=== PATIENT | male | born 1955 | race Caucasian/White ===

== ENCOUNTER 2019-08-19 17:38 | Emergency (ER) | payer OTHER ==
[~2019-08-19] VITALS: Ht 175.3 cm; Wt 72.6 kg
--- NOTE | 2019-08-19 17:43 | NUR ---
ED Nurse Note: Pt arrived with [facility] from [facility] due to right foot pain x 1 day. redness noted. pain 01/20 Addendum: 08/19/19 at 1744 by PDELEON ED Nurse Note: *0 pain
[2019-08-19] MEDS ORDERED: LISINOPRIL20 MG ORAL (17:51)
[2019-08-19] MEDS ORDERED: FERROUS SULFAT325 MG ORAL (17:51)
[2019-08-19] MEDS ORDERED: MELATONIN3 M1 ORAL (17:51)
[2019-08-19] MEDS ORDERED: NEURONTIN600 MG ORAL (17:51)
[2019-08-19] MEDS ORDERED: BISOPROLOL FUMAR5 MG PO (17:51)
[2019-08-19] MEDS ORDERED: ASPIRIN81 MG ORAL (17:51)
[2019-08-19] MEDS ORDERED: IBUPROFEN800 MG ORAL (17:51)
[2019-08-19] MEDS ORDERED: NORCO 10-325 T1 EACH ORAL (17:51)
[2019-08-19] MEDS ORDERED: ACETAMINOPHEN325 M1 ORAL (17:51)
[2019-08-19] MEDS ORDERED: ATORVASTATIN CA40 MG ORAL (17:51)
--- NOTE | 2019-08-19 17:58 | Emergency Room Report ---
History of Present Illness General Chief Complaint: Lower Extremity Injury Source: Patient, EMS Present Illness HPI Disclaimer: Please note that this report is being documented using [employer] technology. This can lead to erroneous entry secondary to incorrect interpretation by the dictating instrument. HPI: 64-year-old male history of hyperlipidemia, hypertension, peripheral vascular disease, left lower extremity [id number] amputation presented for right lower extremity pain and swelling. Pain and swelling present for approximately 1 week. Patient denies any fevers cough nausea or vomiting. Patient is nonambulatory and uses a wheelchair. Pain currently 8 out of 10 worse with movement and palpation. PMH: As above PSH: Reviewed Social Hx: Patient is an active smoker currently lives in a [facility] facility denied illicit drug use Allergies: Uncoded Allergies: PENICILLIN (Allergy, Unknown, 08/19/19) COVID-19 Screening Contact w/high risk pt: No Recent Travel to affected area: No Experienced COVID-19 symptoms?: No Nursing Documentation-PMH Hx Hypertension: Yes Review of Systems All Other Systems: negative except mentioned in HPI Physical Exam Vital Signs Date Time Temp Pulse Resp B/P (MAP) Pulse Ox O2 Delivery O2 Flow Rate FiO2 08/19/19 17:40 98.4 78 19 133/77 (95) 96 Room Air Sp02 EP Interpretation: reviewed, normal General Appearance: well appearing, no apparent distress Head: normocephalic, atraumatic Eyes: bilateral eye PERRL, bilateral eye EOMI ENT: hearing grossly normal, moist mucus membranes Neck: full range of motion, supple Respiratory: lungs clear, normal breath sounds, no rhonchi, no respiratory distress, no retraction, no wheezing Cardiovascular #1: normal peripheral pulses, regular rate, rhythm, no murmur Cardiovascular #2: 0 femoral (R), 0 dorsalis pedis (R) Gastrointestinal: non tender, soft, non-distended, no guarding Musculoskeletal: other - Left lower extremity ryaji-fqf-tsvo amputation. Right lower extremity with swelling and mild erythema of the foot without palpable pulses, sensation intact motor intact, capillary refill intact Neurologic: alert, oriented x3, no focal defects Skin: normal color, warm/dry Procedures Critical Care Time Critical Care Time Critical care time is managing the patient due to presentation with acute ischemic limb requiring my acute intervention to prevent further deterioration. Critical care time is 40 minutes and excludes procedures Medical Decision Making Diagnostic Impression: Primary Impression: Ischemia of right lower extremity ER Course MDM: Patient presented for right lower extremity pain. Patient states pain is been present for about 1 week. My differential included but not limited to dependent edema, DVT, cellulitis, peripheral vascular disease to name a few. Clinical course-IV cardiac monitoring pulse oximetry, venous and arterial ultrasounds ordered. Laboratory studies were sent. Arterial ultrasound showed occlusion of the superficial femoral popliteal and dorsalis pedis arteries. Patient did not have a pulse that was palpable or auscultated with Doppler. Due to the concern for limb ischemia patient started on heparin drip. We do not have vascular surgery director aeronautics commission here at [facility] and patient's insurance was contacted at another facility so patient was transferred side facility for vascular surgery consultation and admission. Patient accepted by Dr. Mariscal Labs - Laboratory Tests Test 08/19/19 17:56 White Blood Count 6.3 K/UL (4.8-10.8) Red Blood Count 3.82 M/UL (4.70-6.10) L Hemoglobin 11.5 G/DL (14.2-18.0) L Hematocrit 34.5 % (42.0-52.0) L Mean Corpuscular Volume 90 FL (80-99) Mean Corpuscular Hemoglobin 30.1 PG (27.0-31.0) Mean Corpuscular Hemoglobin Concent 33.3 G/DL (32.0-36.0) Red Cell Distribution Width 13.3 % (11.6-14.8) Platelet Count 108 K/UL (150-450) L Mean Platelet Volume 7.1 FL (6.5-10.1) Neutrophils (%) (Auto) 65.0 % (45.0-75.0) Lymphocytes (%) (Auto) 22.4 % (20.0-45.0) Monocytes (%) (Auto) 11.7 % (1.0-10.0) H Eosinophils (%) (Auto) 0.2 % (0.0-3.0) Basophils (%) (Auto) 0.7 % (0.0-2.0) Prothrombin Time 10.5 SEC (9.30-11.50) Prothrombin Time INR 1.0 (0.9-1.1) Activated Partial Thromboplast Time 29 SEC (23-33) Sodium Level 140 MMOL/L (136-145) Potassium Level 4.5 MMOL/L (3.5-5.1) Chloride Level 103 MMOL/L (98-107) Carbon Dioxide Level 27 MMOL/L (21-32) Anion Gap 10 mmol/L (5-15) Blood Urea Nitrogen 39 mg/dL (7-18) H Creatinine 1.2 MG/DL (0.55-1.30) Estimated Glomerular Filtration Rate > 60 mL/min (>60) Glucose Level 113 MG/DL (74-106) H Calcium Level 9.1 MG/DL (8.5-10.1) Total Bilirubin 0.4 MG/DL (0.2-1.0) Aspartate Amino Transferase (AST) 29 U/L (15-37) Alanine Aminotransferase (ALT) 36 U/L (12-78) Alkaline Phosphatase 75 U/L (46-116) Total Creatine Kinase 61 U/L (26-308) Troponin I 0.000 ng/mL (0.000-0.056) Total Protein 7.5 G/DL (6.4-8.2) Albumin 3.9 G/DL (3.4-5.0) Globulin 3.6 g/dL Albumin/Globulin Ratio 1.1 (1.0-2.7) Plan-patient will be transferred to contracted hospital, [facility]. I spoke with Dr. Mariscal who agreed to accept patient and will consult vascular surgery. Last Vital Signs Date Time Temp Pulse Resp B/P (MAP) Pulse Ox O2 Delivery O2 Flow Rate FiO2 08/19/19 17:40 98.4 78 19 133/77 (95) 96 Room Air Disposition: ADMITTED INPATIENT - Patient plan to be admitted to [facility] Condition: Serious - Patient was stable for transfer Alvaro Ramos M.D. August 19, 2019 17:58
--- NOTE | 2019-08-19 18:00 | NUR ---
ED Nurse Note: IV site patent and intact, pt blood specimen colleted; sent to lab
--- NOTE | 2019-08-19 18:00 | NUR ---
ED Nurse Note: please inform dr. queen before discharging patient.
--- NOTE | 2019-08-19 18:04 | NUR ---
ED Nurse Note: US at bedside
--- NOTE | 2019-08-19 18:09 | NUR ---
ED Nurse Note: xray at bedside
[2019-08-19 18:20] LABS: BASOPHILS % (AUTO) 0.7 % (0.0-2.0); EOSINOPHILS % (AUTO) 0.2 % (0.0-3.0); HEMATOCRIT 34.5 % (42.0-52.0); HEMOGLOBIN 11.5 G/DL (14.2-18.0); LYMPHOCYTES % (AUTO) 22.4 % (20.0-45.0); MEAN CORPUSCULAR VOLUME 90 FL (80-99); MONOCYTES % (AUTO) 11.7 % (1.0-10.0); PLATELET COUNT 108 K/UL (150-450); RED BLOOD COUNT 3.82 M/UL (4.70-6.10); RED CELL DISTRIBUTION WIDTH 13.3 % (11.6-14.8); WHITE BLOOD COUNT 6.3 K/UL (4.8-10.8)
[2019-08-19 18:22] LABS: ANION GAP 10 mmol/L (5-15); BLOOD UREA NITROGEN 39 mg/dL (7-18); CALCIUM 9.1 MG/DL (8.5-10.1); CARBON DIOXIDE 27 MMOL/L (21-32); CHLORIDE 103 MMOL/L (98-107); CREATININE 1.2 MG/DL (0.55-1.30); POTASSIUM 4.5 MMOL/L (3.5-5.1); SODIUM 140 MMOL/L (136-145)
[2019-08-19 18:25] LABS: ALANINE AMINOTRANSFERASE 36 U/L (12-78); ALBUMIN 3.9 G/DL (3.4-5.0); ALBUMIN/GLOBULIN RATIO 1.1 (1.0-2.7); ALKALINE PHOSPHATASE 75 U/L (46-116); ASPARTATE AMINO TRANSFERASE 29 U/L (15-37); BILIRUBIN,TOTAL 0.4 MG/DL (0.2-1.0); CREATINE KINASE 61 U/L (26-308)
--- NOTE | 2019-08-19 18:45 | Diagnostic Imaging Report ---
EXAM: XR Chest, 1 View CLINICAL HISTORY: SOB TECHNIQUE: Frontal view of the chest. COMPARISON: No relevant prior studies available. FINDINGS: Lungs: No significant abnormality. No consolidation. Pleural space: No significant abnormality. No pneumothorax. Heart: No significant abnormality. No cardiomegaly. Mediastinum: No significant abnormality. Bones/joints: No acute osseous abnormality. IMPRESSION: No acute cardiopulmonary process.
[2019-08-19] MEDS ORDERED: Heparin 25,000u/D5W 500ml 500 ML IV SCH (19:15)
[2019-08-19] MEDS ORDERED: Heparin 5000 units/ml inj IV ONE (19:15)
--- NOTE | 2019-08-19 19:22 | NUR ---
ED Nurse Note: ENDORSEMENT GIVEN TO MARISSA CRUM. HEPARIN ORDER STILL STANDING.
[2019-08-19 19:35] VITALS: BP 124/55
--- NOTE | 2019-08-19 19:36 | NUR ---
ED Nurse Note: Patient is resting comfortably with no s/s of acute distress. Patient tolerated IV heparin push well. Pharmacy contacted for lable for heparin drip. Will continue to monitor.
--- NOTE | 2019-08-19 19:42 | Diagnostic Imaging Report ---
EXAM: US Duplex Right Lower Extremity Arteries CLINICAL HISTORY: PAIN TECHNIQUE: Real-time duplex ultrasound scan of the right lower extremity arteries integrating B-mode two-dimensional vascular structure, Doppler spectral analysis and color flow Doppler imaging. COMPARISON: No relevant prior studies available. FINDINGS: Right common femoral artery: Monophasic waveform in the right common femoral artery. Right superficial femoral artery: No detectable flow. Right popliteal artery: No detectable flow. Right calf/foot arteries: No detectable flow in the posterior tibial, anterior tibial, or dorsalis pedis artery. Soft tissues: No significant abnormality. IMPRESSION: No detectable flow in the right femoral, popliteal, posterior tibial, anterior tibial, and dorsalis pedis arteries.
--- NOTE | 2019-08-19 19:54 | NUR ---
Spoke with Sumaya-case coordinator-updated information given-will work on transfering patient.
--- NOTE | 2019-08-19 20:00 | NUR ---
ED Nurse Note: Unable to locate dorsal pedis pulse with doppler, ERMD to be informed.
--- NOTE | 2019-08-19 20:25 | Diagnostic Imaging Report ---
EXAM: US Duplex Right Lower Extremity Veins CLINICAL HISTORY: PAIN TECHNIQUE: Real-time duplex ultrasound scan of the right lower extremity veins integrating B-mode two-dimensional vascular structure, Doppler spectral analysis, color flow Doppler imaging and compression. COMPARISON: No relevant prior studies available. FINDINGS: Deep veins: Unremarkable as visualized. Normal compression and normal response to augmentation. Superficial veins: Unremarkable as visualized. Soft tissues: No acute findings. IMPRESSION: No right lower extremity DVT.
--- NOTE | 2019-08-19 21:22 | NUR ---
ED Nurse Note: Called to render report to nursing maintenance supervisor at [facility]. Spoke with katya rodriguez Recruitment Advertising Manager, who change room from 202B to 207B and report was called in to Kelsey. ACLS is currently here for pickup, listening in on report. heparin DC'd as accompanying nurse stipulated that they cannot transport with heparin. Patient is in stable condition for transfer, vital signs are documented. Patient has no complaints upon departure for transfer.
[2019-08-19 21:30] VITALS: BP 124/55
--- NOTE | 2019-08-19 21:30 | NUR ---
ED Nurse Note: Patient departed with ACLS.
== END 2019-08-19 21:30 | disposition short-term general hospital (02) ==
LOC: EDBD 17:38 → EMR 18:06
DX: I99.8 Other disorder of circulatory system (principal); Z88.0 Allergy status to penicillin; I10 Essential (primary) hypertension; F17.200 Nicotine dependence, unspecified, uncomplicated; E78.5 Hyperlipidemia, unspecified; Z89.612 Acquired absence of left leg above knee
CPT/HCPCS: 36415; 71045; 80053; 82550; 84484; 85025; 85610; 85730; 87040; 93005; 93926; 93971; 96365; 96375; J1644; Z7502; 99291

== ENCOUNTER 2020-03-04 19:34 | Inpatient (IN) | payer OTHER ==
[~2020-03-04] VITALS: Ht 167.6 cm; Wt 77.1 kg
[~2020-03-04 19:34] MED LIST: ACETAMINOPHEN325 M1 ORAL; ASPIRIN81 MG ORAL; ATORVASTATIN CA40 MG ORAL; BISOPROLOL FUMAR5 MG PO; FERROUS SULFAT325 MG ORAL; IBUPROFEN800 MG ORAL; LISINOPRIL20 MG ORAL; MELATONIN3 M1 ORAL; NEURONTIN600 MG ORAL; NORCO 10-325 T1 EACH ORAL
[2020-03-04 19:55] VITALS: BP 94/48
[2020-03-04] MEDS ORDERED: Vancomycin 1.5gm/300ml Premix 300 ML IVPB ONE (20:00)
[2020-03-04 20:08] LABS: HEMATOCRIT 23.4 % (42.0-52.0); HEMOGLOBIN 7.9 G/DL (14.2-18.0); MEAN CORPUSCULAR VOLUME 85 FL (80-99); PLATELET COUNT 210 K/UL (150-450); RED BLOOD COUNT 2.77 M/UL (4.70-6.10); RED CELL DISTRIBUTION WIDTH 13.9 % (11.6-14.8)
[2020-03-04] MEDS ORDERED: Morphine Sulfate 4mg/ml Inj (IV USE ONLY) ONE (20:16)
[2020-03-04] MEDS ORDERED: BISACODYL5 MG ORAL (20:22)
[2020-03-04] MEDS ORDERED: MULTI-BETIC TA1 EAC1 ORAL (20:22)
[2020-03-04] MEDS ORDERED: ASCORBIC ACID500 MG ORAL (20:22)
[2020-03-04] MEDS ORDERED: COLACE100 MG ORAL (20:22)
[2020-03-04 20:24] LABS: ANION GAP 10 mmol/L (5-15); BLOOD UREA NITROGEN 58 mg/dL (7-18); CALCIUM 8.4 MG/DL (8.5-10.1); CARBON DIOXIDE 23 MMOL/L (21-32); CHLORIDE 99 MMOL/L (98-107); CREATININE 1.4 MG/DL (0.55-1.30); POTASSIUM 4.3 MMOL/L (3.5-5.1); SODIUM 132 MMOL/L (136-145)
[2020-03-04] MEDS ORDERED: Morphine Sulfate 4mg/ml Inj (IV USE ONLY) IVP ONE (20:30)
[2020-03-04 20:41] LABS: ALANINE AMINOTRANSFERASE 85 U/L (12-78); ALBUMIN/GLOBULIN RATIO 0.4 (1.0-2.7); ALKALINE PHOSPHATASE 116 U/L (46-116); ASPARTATE AMINO TRANSFERASE 119 U/L (15-37); BILIRUBIN,TOTAL 0.3 MG/DL (0.2-1.0); FERRITIN > 2000 NG/ML (8-388); LACTATE DEHYDROGENASE 268 U/L (81-234)
--- NOTE | 2020-03-04 20:45 | Emergency Room Report ---
History of Present Illness General Chief Complaint: Skin Rash/Abscess Source: Patient Present Illness HPI 64-year-old male presents for evaluation. [facility] Per nursing patient has a wound to his right foot. Patient states is been like this for some time now. Many months. Is not improving. Pain is throbbing, 10 out of 10, nonradiating. Denies fevers or chills. Patient recently tested positive for Covid. Denies cough chest pain shortness of breath. No other aggravating relieving factors. Denies any other associated symptoms Allergies: Uncoded Allergies: PENICILLIN (Allergy, Unknown, 08/19/19) COVID-19 Screening Contact w/high risk pt: Yes Recent Travel to affected area: No Experienced COVID-19 symptoms?: Yes COVID-19 Testing performed [employer]KER: Yes COVID-19 Screening: Positive COVID-19 COVID-19 Testing Source: [facility] Patient History Past Medical History: HTN Past Surgical History: none Pertinent Family History: none Social History: Denies: smoking, alcohol use, drug use Immunizations: UTD Reviewed Nursing Documentation: PMH: Agreed; PSxH: Agreed Nursing Documentation-PMH Hx Hypertension: Yes Review of Systems All Other Systems: negative except mentioned in HPI Physical Exam Vital Signs Date Time Temp Pulse Resp B/P (MAP) Pulse Ox O2 Delivery O2 Flow Rate FiO2 03/04/20 19:38 97.9 84 16 94/48 (63) 96 Room Air Sp02 EP Interpretation: reviewed, normal General Appearance: no apparent distress, alert, GCS 15, non-toxic Head: normocephalic, atraumatic Eyes: bilateral eye normal inspection, bilateral eye PERRL ENT: hearing grossly normal, normal pharynx, no angioedema, normal voice Neck: full range of motion, supple/symm/no masses Respiratory: chest non-tender, lungs clear, normal breath sounds, speaking full sentences Cardiovascular #1: regular rate, rhythm, no edema Cardiovascular #2: 2+ carotid (R), 2+ carotid (L), 2+ radial (R), 2+ radial (L), 2+ dorsalis pedis (R), 2+ dorsalis pedis (L) Gastrointestinal: normal bowel sounds, non tender, soft, non-distended, no guarding, no rebound Rectal: deferred Genitourinary: normal inspection, no CVA tenderness Musculoskeletal: back normal, normal range of motion, gait/station normal, non- tender Neurologic: alert, motor strength/tone normal, oriented x3, sensory intact, responsive, speech normal Psychiatric: judgement/insight normal, memory normal, mood/affect normal, no suicidal/homicidal ideation Reflexes: 3+ bicep (R), 3+ bicep (L), 3+ tricep (R), 3+ tricep (L), 3+ knee (R), 3+ knee (L) Skin: other - Gangrene of right foot and ankle Lymphatic: no adenopathy Procedures Critical Care Time Critical Care Time i. I feel this is a highly complex case requiring extensive working including EKG/Rhythm strip, Xray/CT/US, Blood/urine lab work, repeat exams while in ED, and administration of strong opiates/narcotics for pain control, admission to hospital or close patient follow up. Total time: 60 min bedside evaluation and treatment excludes procedures (EKG). Reason for critical care: gangrene R foot Possible complications: hypotension, hypertension, AR, shock, arrhythmias, metabolic acidosis, end organ damage, respiratory failure. Interventions: Labs, IV fluids, chest x-ray, Covid swab, broad-spectrum antibiotics, discussion with surgery Course: Patient presenting with wound to his right foot. Covid positive. No cough chest pain or shortness of breath. The foot and ankle appears gangrenous. Discussed with surgery who agrees. Patient will likely require operative intervention possible amputation. Broad-spectrum antibiotics given. Consultations: nursing staff, EMS, family Performed by: Dr Aranda Tolerated well condition = serious j. because of unstable vital signs this patient had a condition that could pote ntially threaten life or limb. I feel this is a critical patient who required my full attention while patient was considered critical. Total Critical Care Time excluding procedures was greater than 60 minutes Medical Decision Making Diagnostic Impression: Primary Impression: Gangrene of right foot Additional Impression: COVID-19 ER Course Hospital Course 64-year-old male presents with wounds to right foot Differential diagnoses include: Cellulitis, DVT, abscess, rash. Clinical course Patient placed on stretcher. in isolation. I wore full PPE. After initial history and physical I ordered labs, blood Cx, UA, IVFs, CXR, R foot xray Clinically the foot appears gangrenous labs reviewed - no leukocytosis, Hb/Hct 7.9/23.4, no electrolyte abnormalities. D-dimer 1.89, ferritin, LDH, CRP all elevated Covid positive Chest x-ray shows no focal consolidation Right foot x-ray shows some locules of air and some soft tissue swelling. No obvious evidence of osteomyelitis Broad-spectrum antibiotics given. Given dexamethasone and Lovenox for elevated inflammatory markers and elevated D-dimer. Discussed with surgery to evaluate the foot/ankle Case discussed with Dr Vickers and he agreed to accept the patient to his service for further care and support Diagnosis - gangrene of R foot, COVID 19 Patient admitted to floor in serious condition Laboratory Tests Test 03/04/20 19:46 White Blood Count 7.0 K/UL (4.8-10.8) Red Blood Count 2.77 M/UL (4.70-6.10) L Hemoglobin 7.9 G/DL (14.2-18.0) L Hematocrit 23.4 % (42.0-52.0) L Mean Corpuscular Volume 85 FL (80-99) Mean Corpuscular Hemoglobin 28.5 PG (27.0-31.0) Mean Corpuscular Hemoglobin Concent 33.6 G/DL (32.0-36.0) Red Cell Distribution Width 13.9 % (11.6-14.8) Platelet Count 210 K/UL (150-450) Mean Platelet Volume 5.5 FL (6.5-10.1) L Neutrophils (%) (Auto) % (45.0-75.0) Lymphocytes (%) (Auto) % (20.0-45.0) Monocytes (%) (Auto) % (1.0-10.0) Eosinophils (%) (Auto) % (0.0-3.0) Basophils (%) (Auto) % (0.0-2.0) Neutrophils % (Manual) Pending Lymphocytes % (Manual) Pending Platelet Estimate Pending Platelet Morphology Pending Prothrombin Time 10.9 SEC (9.30-11.50) Prothromb Time International Ratio 1.0 (0.9-1.1) Activated Partial Thromboplast Time 34 SEC (23-33) H D-Dimer 1.89 mg/L FEU (0.00-0.49) H Sodium Level 132 MMOL/L (136-145) L Potassium Level 4.3 MMOL/L (3.5-5.1) Chloride Level 99 MMOL/L (98-107) Carbon Dioxide Level 23 MMOL/L (21-32) Anion Gap 10 mmol/L (5-15) Blood Urea Nitrogen 58 mg/dL (7-18) H Creatinine 1.4 MG/DL (0.55-1.30) H Estimat Glomerular Filtration Rate 51.0 mL/min (>60) Glucose Level 112 MG/DL (74-106) H Lactic Acid Level 1.20 mmol/L (0.4-2.0) Calcium Level 8.4 MG/DL (8.5-10.1) L Ferritin > 2000 NG/ML (8-388) H Total Bilirubin 0.3 MG/DL (0.2-1.0) Aspartate Amino Transf (AST/SGOT) 119 U/L (15-37) H Alanine Aminotransferase (ALT/SGPT) 85 U/L (12-78) H Alkaline Phosphatase 116 U/L (46-116) Lactate Dehydrogenase 268 U/L (81-234) H C-Reactive Protein, Quantitative 39.8 mg/dL (0.00-0.90) H Pro-B-Type Natriuretic Peptide 1459 pg/mL (0-125) H Total Protein 7.1 G/DL (6.4-8.2) Albumin 2.0 G/DL (3.4-5.0) L Globulin 5.1 g/dL Albumin/Globulin Ratio 0.4 (1.0-2.7) L Chest X-Ray Diagnostic Results Chest X-Ray Diagnostic Results : Chest X-Ray Ordered: Yes # of Views/Limited/Complete: 1 View Indication: Other EP Interpretation: Yes Interpretation: no consolidation, no effusion, no pneumothorax, no acute cardiopulmonary disease Impression: No acute disease Electronically Signed by: Electronically signed by Jeremy Aranda MD Other X-Ray Diagnostic Results Other X-Ray Diagnostic Results : X-Ray ordered: R foot # of Views/Limited Vs Complete: 3 View Indication: Pain EP Interpretation: Yes Interpretation: no dislocation, no fractures, other - Soft tissue swelling locules of air. No evidence of osteomyelitis Impression: Other - Soft tissue swelling, locules of air Electronically Signed by: Electronically signed by Jeremy Aranda MD Last Vital Signs Date Time Temp Pulse Resp B/P (MAP) Pulse Ox O2 Delivery O2 Flow Rate FiO2 03/04/20 19:55 97.9 90 16 94/48 96 Room Air Status: improved Disposition: ADMITTED INPATIENT Condition: Serious Referrals: Matthew Vickers MD (PCP) Jeremy Aranda MD Mar 04, 2020 20:45
--- NOTE | 2020-03-04 20:59 | Diagnostic Imaging Report ---
EXAM: XR Right Foot Complete, 3 or More Views CLINICAL HISTORY: PREOP TECHNIQUE: Frontal, lateral and oblique views of the right foot. COMPARISON: No relevant prior studies available. FINDINGS: Bones/joints: There is generalized osteopenia. No focal cortical lucency to suggest acute osteomyelitis. There is a deformity of the fifth metatarsal head, likely the result of prior trauma. Additionally there is an overhanging osseous edge along the lateral margin of the distal fifth metatarsal which raises the possibility of a inflammatory arthropathy such as gout of the fifth metatarsophalangeal joint. No acute fracture is seen. No dislocation. Small retrocalcaneal enthesophyte. Soft tissues: There is diffuse soft tissue swelling and edema with locules of air, consistent with history of soft tissue wound. No radiopaque foreign body. IMPRESSION: Diffuse soft tissue swelling, edema with locules of air is compatible with history of soft tissue wound. No radiographic evidence of underlying osteomyelitis. An MRI is a more sensitive examination and can be performed to exclude osteomyelitis if clinically indicated.
--- NOTE | 2020-03-04 21:01 | Diagnostic Imaging Report ---
EXAM: XR Chest, 1 View CLINICAL HISTORY: PREOP TECHNIQUE: Frontal view of the chest. COMPARISON: No relevant prior studies available. FINDINGS: Lungs: Unremarkable. No consolidation. Pleural space: Unremarkable. No pneumothorax. Heart: Unremarkable. No cardiomegaly. Mediastinum: Unremarkable. Bones/joints: Old healed fracture of the right clavicle. IMPRESSION: No acute findings in the chest.
[2020-03-04] MEDS ORDERED: Enoxaparin 40mg Inj SUBQ ONE (21:15)
[2020-03-04] MEDS ORDERED: dexAMETHasone 10mg/ml Inj IV ONE (21:15)
[2020-03-04 22:07] VITALS: BP 105/54
[2020-03-05 04:00] VITALS: BP_SYST 130; BP_SYST 92; BP_DIAS 63; BP_DIAS 76
[2020-03-05] MEDS ORDERED: HYDROcodone/Acetamin 10/325 tab ORAL PRN ×2 (06:45→12:13)
[2020-03-05 08:00] VITALS: BP 98/60
[2020-03-05] MEDS ORDERED: Bisacodyl EC 5mg tab ORAL SCH (09:00)
[2020-03-05] MEDS ORDERED: Ascorbic Acid 500mg tab ORAL SCH ×2 (09:00→18:00)
[2020-03-05] MEDS ORDERED: Aspirin Baby 81mg ORAL SCH (09:00)
[2020-03-05] MEDS ORDERED: Lisinopril 20mg tab ORAL SCH (09:00)
[2020-03-05] MEDS ORDERED: Docusate 100mg cap ORAL SCH (09:00)
[2020-03-05] MEDS: Vancomycin 500mg/D5W 110ml IVPB SCH ×4 (09:04→20:33)
[2020-03-05 12:00] VITALS: BP 95/55
[2020-03-05] MEDS ORDERED: ACETAMINOPHEN325 M1 ORAL (12:01)
[2020-03-05] MEDS ORDERED: MILK OF MA400 MG/51 ORAL (12:01)
[2020-03-05] MEDS ORDERED: BISACODYL10 M1 RC (12:01)
[2020-03-05] MEDS ORDERED: Heparin 5000 units/ml inj SUBQ SCH ×2 (14:00)
[2020-03-05] MEDS ORDERED: Piperacillin/Tazobactam 3.375 GM in NS 110 ML IVPB SCH (14:00)
--- NOTE | 2020-03-05 14:09 | Consultation ---
History of Present Illness General Date patient seen: Mar 05, 2020 Reason for Hospitalization: Skin Rash/Abscess Present Illness HPI 64-year-old male with history of left AKA for ischemic gangrene infection presented to [facility] from care facility with right foot drainage ischemia open wound complaining of pain. Patient states he is not getting the pain medication he wants he wants his morphine pain is 10 out of 10. Given the extensive wound on his right lower extremity foot surgical devices with care. Patient seen, patient [place], chart reviewed. Patient currently Covid positive all precautions taken. Patient states he has had ongoing worsening ischemia and gangrene of his right lower extremity for some months now. He is considered an amputation in the past and is seemingly becoming more comfortable with the idea. States become more difficult to ambulate on his right leg and is fairly whee lchair-bound at this point. Tolerating diet labs okay no nausea vomiting fever chills Allergies: Uncoded Allergies: PENICILLIN (Allergy, Unknown, 08/19/19) COVID-19 Screening Contact w/high risk pt: Yes Recent Travel to affected area: No Experienced COVID-19 symptoms?: Yes Coronavirus symptoms experienc: Cough Medication History Scheduled Ascorbic Acid* (Ascorbic Acid*), 500 MG ORAL TWICE A DAY, (Reported) Aspirin* (Aspirin*), 81 MG ORAL DAILY, (Reported) Atorvastatin Calcium* (Atorvastatin Calcium*), 40 MG ORAL BEDTIME, (Reported) Docusate Sodium* (Colace*), 100 MG ORAL DAILY, (Reported) Gabapentin* (Neurontin*), 600 MG ORAL TWICE A DAY, (Reported) Lisinopril (Lisinopril*), 20 MG ORAL DAILY, (Reported) Magnesium Hydroxide* (Milk Of Magnesia*), 30 ML ORAL DAILY, (Reported) Multivit W-Mn/Fa/Lycop/Lut/Ala (Multi-Betic Tablet), 1 TAB ORAL DAILY, (Reported) Scheduled PRN Acetaminophen* (Acetaminophen 325MG Tablet*), 325 MG ORAL Q4H PRN for Mild Pain (Pain Scale 1-3), (Reported) Acetaminophen* (Acetaminophen 325MG Tablet*), 325 MG ORAL EVERY 8 HOURS PRN for Moderate Pain (Pain Scale 4-6), (Reported) Bisacodyl (Bisacodyl), 10 MG RC DAILY PRN for bowel management if MoM ineffe, (Reported) Hydrocodone Bit/Acetaminophen 10-325* ([place] 10-325*), 1 TAB ORAL Q4H PRN for Severe Pain (Pain Scale 7-10), (Reported) Melatonin (Melatonin), 3 MG ORAL BEDTIME PRN for Insomnia, (Reported) Miscellaneous Medications Bisoprolol Fumarate (Bisoprolol Fumarate), 5 MG PO, (Reported) Discontinued Medications Bisacodyl* (Dulcolax*), 10 MG ORAL DAILY, (Reported) Discontinued Reason: Prescription changed Ferrous Sulfate* (Ferrous Sulfate*), 325 MG ORAL DAILY, (Reported) Discontinued Reason: Pt stopped taking med Ibuprofen* (Motrin*), 800 MG ORAL Q6H, (Reported) Discontinued Reason: Pt stopped taking med Patient History History Provided By: Patient, Medical Record, PMD Healthcare decision maker Resuscitation status Advanced Directive on File Past Medical/Surgical History Past Medical/Surgical History: (1) Gangrene of right foot (2) COVID-19 Review of Systems Review of Symptoms General ROS: no weight loss or fever Psychological ROS: no depression or mood changes, no memory loss Ophthalmic ROS: no visual changes or eye irritation ENT ROS: no nasal congestion, hearing loss, dizziness Allergy and Immunology ROS: no allergic symptoms or urticaria Hematological and Lymphatic ROS: no swollen glands, unusual bleeding or bruising Endocrine ROS: no polyuria, polydipsia, weight changes, temperature intolerance Respiratory ROS: no cough, shortness of breath, or wheezing Cardiovascular ROS: no chest pain or dyspnea on exertion Gastrointestinal ROS: denies abdominal pain, bright red blood in stool. Musculoskeletal ROS: no myalgias or arthralgias Neurological ROS: no TIA or stroke symptoms Dermatological ROS: no new or changing skin lesions, rashes or pruritis Physical Exam Physical Exam General appearance: alert, cooperative, no distress, appears stated age Head: Normocephalic, without obvious abnormality, atraumatic Eyes: conjunctivae/corneas clear. PERRL, EOM's intact. Fundi benign Throat: Lips, mucosa, and tongue normal. Teeth and gums normal Neck: supple, symmetrical, trachea midline, no adenopathy, thyroid: not enlarged, symmetric, no tenderness/mass/nodules, no carotid bruit and no JVD Lungs: clear to auscultation bilaterally Heart: regular rate and rhythm, S1, S2 normal, no murmur, click, rub or gallop Abdomen: soft, non-tender. Bowel sounds normal. No masses, no organomegaly Extremities: extremities left aka stable. right extensive tissue loss dry gangrene with edema of right foot, ankle, distal leg. cellulitis. chronic Pulses: 2+ and symmetric Skin: Skin color, texture, turgor normal. No rashes or lesions Neurologic: Grossly normal Last 24 Hour Vital Signs Date Time Temp Pulse Resp B/P (MAP) Pulse Ox O2 Delivery O2 Flow Rate FiO2 03/05/20 12:00 96.8 70 16 95/55 (68) 97 03/05/20 09:00 Room Air 03/05/20 09:00 98/60 03/05/20 08:00 97.6 78 17 98/60 (73) 96 03/05/20 04:00 97.5 74 18 92/63 (73) 95 03/05/20 02:16 Room Air 03/04/20 22:07 97.9 85 16 105/54 99 Room Air 03/04/20 22:07 98.0 85 16 105/54 99 Room Air 03/04/20 21:47 97.9 03/04/20 19:55 97.9 90 16 94/48 96 Room Air 03/04/20 19:38 97.9 84 16 94/48 (63) 96 Room Air Laboratory Tests Test 03/04/20 19:46 White Blood Count 7.0 K/UL (4.8-10.8) Red Blood Count 2.77 M/UL (4.70-6.10) L Hemoglobin 7.9 G/DL (14.2-18.0) L Hematocrit 23.4 % (42.0-52.0) L Mean Corpuscular Volume 85 FL (80-99) Mean Corpuscular Hemoglobin 28.5 PG (27.0-31.0) Mean Corpuscular Hemoglobin Concent 33.6 G/DL (32.0-36.0) Red Cell Distribution Width 13.9 % (11.6-14.8) Platelet Count 210 K/UL (150-450) Mean Platelet Volume 5.5 FL (6.5-10.1) L Neutrophils (%) (Auto) % (45.0-75.0) Lymphocytes (%) (Auto) % (20.0-45.0) Monocytes (%) (Auto) % (1.0-10.0) Eosinophils (%) (Auto) % (0.0-3.0) Basophils (%) (Auto) % (0.0-2.0) Differential Total Cells Counted 100 Neutrophils % (Manual) 78 % (45-75) H Lymphocytes % (Manual) 13 % (20-45) L Monocytes % (Manual) 7 % (1-10) Eosinophils % (Manual) 0 % (0-3) Basophils % (Manual) 0 % (0-2) Band Neutrophils 2 % (0-8) Platelet Estimate Adequate Platelet Morphology Normal Hypochromasia 2+ Anisocytosis 1+ Prothrombin Time 10.9 SEC (9.30-11.50) Prothromb Time International Ratio 1.0 (0.9-1.1) Activated Partial Thromboplast Time 34 SEC (23-33) H D-Dimer 1.89 mg/L FEU (0.00-0.49) H Sodium Level 132 MMOL/L (136-145) L Potassium Level 4.3 MMOL/L (3.5-5.1) Chloride Level 99 MMOL/L (98-107) Carbon Dioxide Level 23 MMOL/L (21-32) Anion Gap 10 mmol/L (5-15) Blood Urea Nitrogen 58 mg/dL (7-18) H Creatinine 1.4 MG/DL (0.55-1.30) H Estimat Glomerular Filtration Rate 51.0 mL/min (>60) Glucose Level 112 MG/DL (74-106) H Lactic Acid Level 1.20 mmol/L (0.4-2.0) Calcium Level 8.4 MG/DL (8.5-10.1) L Ferritin > 2000 NG/ML (8-388) H Total Bilirubin 0.3 MG/DL (0.2-1.0) Aspartate Amino Transf (AST/SGOT) 119 U/L (15-37) H Alanine Aminotransferase (ALT/SGPT) 85 U/L (12-78) H Alkaline Phosphatase 116 U/L (46-116) Lactate Dehydrogenase 268 U/L (81-234) H C-Reactive Protein, Quantitative 39.8 mg/dL (0.00-0.90) H Pro-B-Type Natriuretic Peptide 1459 pg/mL (0-125) H Total Protein 7.1 G/DL (6.4-8.2) Albumin 2.0 G/DL (3.4-5.0) L Globulin 5.1 g/dL Albumin/Globulin Ratio 0.4 (1.0-2.7) L Microbiology Date/Time Source Procedure Growth Status 03/04/20 19:46 Nasopharynx SARS-CoV-2 RdRp Gene Assay - Final Complete Height (Feet): 5 Height (Inches): 6.00 Weight (Pounds): 170 Medications Current Medications Medications (Trade) Dose Ordered Sig/[place] Route PRN Reason Start Time Stop Time Status Last Admin Dose Admin Acetaminophen (Tylenol) 325 mg Q4H PRN ORAL pain 1-3 03/05/20 12:12 04/04/20 12:11 Acetaminophen/ Hydrocodone Bitart ([place] 10/325) 1 tab Q4H PRN ORAL PAIN 7-10 03/05/20 12:13 03/12/20 12:12 Ascorbic Acid (Vitamin C) 500 mg TWICE A DAY ORAL 03/05/20 18:00 04/04/20 17:59 Aspirin (ASA) 81 mg DAILY ORAL 03/06/20 09:00 04/20/20 08:59 Atorvastatin Calcium (Lipitor) 40 mg BEDTIME ORAL 03/05/20 21:00 06/03/20 20:59 Bisacodyl (Dulcolax) 10 mg DAILY ORAL 03/06/20 09:00 06/04/20 08:59 Bisoprolol Fumarate (Zebeta) 5 mg DAILY ORAL 03/06/20 09:00 04/05/20 08:59 Docusate Sodium (Colace) 100 mg DAILY ORAL 03/06/20 09:00 04/05/20 08:59 Ferrous Sulfate (Feosol) 325 mg DAILY ORAL 03/06/20 09:00 06/04/20 08:59 Heparin Sodium (Porcine) (Heparin 5000 units/ml) 5,000 units EVERY 8 HOURS SUBQ 03/05/20 14:00 04/19/20 13:59 Ibuprofen (Motrin) 800 mg Q6H PRN ORAL PAIN 4-7 03/05/20 12:13 04/04/20 12:12 Levofloxacin 100 ml @ 100 mls/hr Q24H IVPB 03/05/20 10:00 03/12/20 09:59 03/05/20 10:12 Lisinopril (PriniviL) 20 mg DAILY ORAL 03/06/20 09:00 04/05/20 08:59 Vancomycin HCl (Vanco pharmacy to dose) 1 ea DAILY PRN MISC Per rx protocol 03/05/20 06:45 04/04/20 06:44 Vancomycin HCl 500 mg/Dextrose 110 ml @ 110 mls/hr Q12HR@0900,2100 IVPB 03/05/20 09:00 03/10/20 08:59 03/05/20 09:04 Assessment/Plan Problem List: (1) Gangrene of right foot Assessment & Plan: 64-year-old male with history of left aka which is currently stable stable. On right lower extremity he has extensive tissue loss dry gangrene with edema of right foot, ankle, distal leg. cellulitis. chronic. Afebrile hemodynamic stable labs okay. Patient mainly complaining of pain and wants more pain medication. Unsure if directly related to the extremity or potential history of dependency. The extent of the leg tissue loss is significant and the likelihood of salvage is very poor. Will initiate local wound care in the meantime. Patient is Covid positive and will proceed with denita atment of that prior to any consideration of amputation as this is longer chronic ongoing and amputation can be done at a later time as it has been deferred for some time now. Given the Covid status for patient safety operative team surgical and elective nature of the procedure can proceed with antibiotic local wound care and consideration of amputation future. If worsening or be comes an emergency will need emergent amputation and will be available. Thank you for letting participate patient's care There is generalized osteopenia. No focal cortical lucency to suggest acute osteomyelitis. There is a deformity of the fifth metatarsal head, likely the result of prior trauma. Additionally there is an overhanging osseous edge along the lateral margin of the distal fifth metatarsal which raises the possibility of a inflammatory arthropathy such as gout of the fifth metatarsophalangeal joint. No acute fracture is seen. No dislocation. Small retrocalcaneal enthesophyte. Soft tissues: There is diffuse soft tissue swelling and edema with locules of air, consistent with history of soft tissue wound. No radiopaque foreign body. IMPRESSION: Diffuse soft tissue swelling, edema with locules of air is compatible with history of soft tissue wound. No radiographic evidence of underlying osteomyelitis. An MRI is a more sensitive examination and can be performed to exclude osteomyelitis if clinically indicated. ICD Codes: I96 - Gangrene, not elsewhere classified SNOMED: [id number] (2) COVID-19 Assessment & Plan: ++ rx pulm ID ICD Codes: U07.1 - COVID-19 SNOMED: [id number] Ryan Albright Mar 05, 2020 14:09
[2020-03-05 16:00] VITALS: BP 98/63
[2020-03-05] MEDS: Ascorbic Acid 500mg tab ORAL SCH (17:21)
--- NOTE | 2020-03-05 17:30 | History and Physical ---
History of Present Illness General Date patient seen: Mar 05, 2020 Reason for Hospitalization: Skin Rash/Abscess Present Illness HPI 64 years old male came to ed for interctable pain and worsening of th lt foot wound pt also noted covid 19. pt has no fever chills Allergies: Uncoded Allergies: PENICILLIN (Allergy, Unknown, 08/19/19) COVID-19 Screening Contact w/high risk pt: Yes Recent Travel to affected area: No Experienced COVID-19 symptoms?: Yes Coronavirus symptoms experienc: Cough Medication History Scheduled Ascorbic Acid* (Ascorbic Acid*), 500 MG ORAL TWICE A DAY, (Reported) Aspirin* (Aspirin*), 81 MG ORAL DAILY, (Reported) Atorvastatin Calcium* (Atorvastatin Calcium*), 40 MG ORAL BEDTIME, (Reported) Docusate Sodium* (Colace*), 100 MG ORAL DAILY, (Reported) Gabapentin* (Neurontin*), 600 MG ORAL TWICE A DAY, (Reported) Lisinopril (Lisinopril*), 20 MG ORAL DAILY, (Reported) Magnesium Hydroxide* (Milk Of Magnesia*), 30 ML ORAL DAILY, (Reported) Multivit W-Mn/Fa/Lycop/Lut/Ala (Multi-Betic Tablet), 1 TAB ORAL DAILY, (Reported) Scheduled PRN Acetaminophen* (Acetaminophen 325MG Tablet*), 325 MG ORAL Q4H PRN for Mild Pain (Pain Scale 1-3), (Reported) Acetaminophen* (Acetaminophen 325MG Tablet*), 325 MG ORAL EVERY 8 HOURS PRN for Moderate Pain (Pain Scale 4-6), (Reported) Bisacodyl (Bisacodyl), 10 MG RC DAILY PRN for bowel management if MoM ineffe, (Reported) Hydrocodone Bit/Acetaminophen 10-325* ([place] 10-325*), 1 TAB ORAL Q4H PRN for Severe Pain (Pain Scale 7-10), (Reported) Melatonin (Melatonin), 3 MG ORAL BEDTIME PRN for Insomnia, (Reported) Miscellaneous Medications Bisoprolol Fumarate (Bisoprolol Fumarate), 5 MG PO, (Reported) Discontinued Medications Bisacodyl* (Dulcolax*), 10 MG ORAL DAILY, (Reported) Discontinued Reason: Prescription changed Ferrous Sulfate* (Ferrous Sulfate*), 325 MG ORAL DAILY, (Reported) Discontinued Reason: Pt stopped taking med Ibuprofen* (Motrin*), 800 MG ORAL Q6H, (Reported) Discontinued Reason: Pt stopped taking med Patient History Healthcare decision maker Resuscitation status Advanced Directive on File Review of Systems Constitutional: Reports: malaise, weakness Eye: Reports: no symptoms ENT: Reports: no symptoms Respiratory: Reports: cough Cardiovascular: Reports: no symptoms Gastrointestinal: Reports: no symptoms Genitourinary: Reports: no symptoms Musculoskeletal: Reports: joint swelling, muscle pain Skin: Reports: no symptoms Neurological: Reports: no symptoms Endocrine: Reports: no symptoms Physical Exam General Appearance: alert Lines, tubes and drains: peripheral HEENT: normocephalic Neck: non-tender, supple Respiratory/Chest: crackles/rales Cardiovascular/Chest: regular rhythm Abdomen: non tender, soft Genitourinary/Rectal: normal genital exam Extremities: inflammation, other - lt foot gangrne and infected wound Last 24 Hour Vital Signs Date Time Temp Pulse Resp B/P (MAP) Pulse Ox O2 Delivery O2 Flow Rate FiO2 03/05/20 16:00 97.2 76 19 98/63 (75) 95 03/05/20 12:00 96.8 70 16 95/55 (68) 97 03/05/20 09:00 Room Air 03/05/20 09:00 98/60 03/05/20 08:00 97.6 78 17 98/60 (73) 96 03/05/20 04:00 97.5 74 18 92/63 (73) 95 03/05/20 02:16 Room Air 03/04/20 22:07 97.9 85 16 105/54 99 Room Air 03/04/20 22:07 98.0 85 16 105/54 99 Room Air 03/04/20 21:47 97.9 03/04/20 19:55 97.9 90 16 94/48 96 Room Air 03/04/20 19:38 97.9 84 16 94/48 (63) 96 Room Air Laboratory Tests Test 03/04/20 19:46 White Blood Count 7.0 K/UL (4.8-10.8) Red Blood Count 2.77 M/UL (4.70-6.10) L Hemoglobin 7.9 G/DL (14.2-18.0) L Hematocrit 23.4 % (42.0-52.0) L Mean Corpuscular Volume 85 FL (80-99) Mean Corpuscular Hemoglobin 28.5 PG (27.0-31.0) Mean Corpuscular Hemoglobin Concent 33.6 G/DL (32.0-36.0) Red Cell Distribution Width 13.9 % (11.6-14.8) Platelet Count 210 K/UL (150-450) Mean Platelet Volume 5.5 FL (6.5-10.1) L Neutrophils (%) (Auto) % (45.0-75.0) Lymphocytes (%) (Auto) % (20.0-45.0) Monocytes (%) (Auto) % (1.0-10.0) Eosinophils (%) (Auto) % (0.0-3.0) Basophils (%) (Auto) % (0.0-2.0) Differential Total Cells Counted 100 Neutrophils % (Manual) 78 % (45-75) H Lymphocytes % (Manual) 13 % (20-45) L Monocytes % (Manual) 7 % (1-10) Eosinophils % (Manual) 0 % (0-3) Basophils % (Manual) 0 % (0-2) Band Neutrophils 2 % (0-8) Platelet Estimate Adequate Platelet Morphology Normal Hypochromasia 2+ Anisocytosis 1+ Prothrombin Time 10.9 SEC (9.30-11.50) Prothromb Time International Ratio 1.0 (0.9-1.1) Activated Partial Thromboplast Time 34 SEC (23-33) H D-Dimer 1.89 mg/L FEU (0.00-0.49) H Sodium Level 132 MMOL/L (136-145) L Potassium Level 4.3 MMOL/L (3.5-5.1) Chloride Level 99 MMOL/L (98-107) Carbon Dioxide Level 23 MMOL/L (21-32) Anion Gap 10 mmol/L (5-15) Blood Urea Nitrogen 58 mg/dL (7-18) H Creatinine 1.4 MG/DL (0.55-1.30) H Estimat Glomerular Filtration Rate 51.0 mL/min (>60) Glucose Level 112 MG/DL (74-106) H Lactic Acid Level 1.20 mmol/L (0.4-2.0) Calcium Level 8.4 MG/DL (8.5-10.1) L Ferritin > 2000 NG/ML (8-388) H Total Bilirubin 0.3 MG/DL (0.2-1.0) Aspartate Amino Transf (AST/SGOT) 119 U/L (15-37) H Alanine Aminotransferase (ALT/SGPT) 85 U/L (12-78) H Alkaline Phosphatase 116 U/L (46-116) Lactate Dehydrogenase 268 U/L (81-234) H C-Reactive Protein, Quantitative 39.8 mg/dL (0.00-0.90) H Pro-B-Type Natriuretic Peptide 1459 pg/mL (0-125) H Total Protein 7.1 G/DL (6.4-8.2) Albumin 2.0 G/DL (3.4-5.0) L Globulin 5.1 g/dL Albumin/Globulin Ratio 0.4 (1.0-2.7) L Microbiology Date/Time Source Procedure Growth Status 03/04/20 19:46 Nasopharynx SARS-CoV-2 RdRp Gene Assay - Final Complete Height (Feet): 5 Height (Inches): 6.00 Weight (Pounds): 170 Medications Current Medications Medications (Trade) Dose Ordered Sig/[place] Route PRN Reason Start Time Stop Time Status Last Admin Dose Admin Acetaminophen (Tylenol) 325 mg Q4H PRN ORAL pain 1-3 03/05/20 16:00 04/04/20 15:59 Acetaminophen/ Hydrocodone Bitart ([place] 10/325) 1 tab Q4H PRN ORAL PAIN 7-10 03/05/20 16:00 03/12/20 15:59 Ascorbic Acid (Vitamin C) 500 mg TWICE A DAY ORAL 03/05/20 18:00 04/04/20 17:59 03/05/20 17:21 Aspirin (ASA) 81 mg DAILY ORAL 03/06/20 09:00 04/20/20 08:59 Atorvastatin Calcium (Lipitor) 40 mg BEDTIME ORAL 03/05/20 21:00 06/03/20 20:59 Bisacodyl (Dulcolax) 10 mg DAILY ORAL 03/06/20 09:00 06/04/20 08:59 Bisoprolol Fumarate (Zebeta) 5 mg DAILY ORAL 03/06/20 09:00 04/05/20 08:59 Docusate Sodium (Colace) 100 mg DAILY ORAL 03/06/20 09:00 04/05/20 08:59 Ferrous Sulfate (Feosol) 325 mg DAILY ORAL 03/06/20 09:00 06/04/20 08:59 Heparin Sodium (Porcine) (Heparin 5000 units/ml) 5,000 units EVERY 8 HOURS SUBQ 03/05/20 22:00 04/19/20 21:59 Ibuprofen (Motrin) 800 mg Q6H PRN ORAL PAIN 4-6 03/05/20 16:00 04/04/20 15:59 Levofloxacin 100 ml @ 100 mls/hr Q24H IVPB 03/05/20 10:00 03/12/20 09:59 03/05/20 10:12 Lisinopril (PriniviL) 20 mg DAILY ORAL 03/06/20 09:00 04/05/20 08:59 Vancomycin HCl (Vanco pharmacy to dose) 1 ea DAILY PRN MISC Per rx protocol 03/05/20 06:45 04/04/20 06:44 Vancomycin HCl 500 mg/Dextrose 110 ml @ 110 mls/hr Q12HR@0900,2100 IVPB 03/05/20 09:00 03/10/20 08:59 03/05/20 09:04 Assessment/Plan Diagnosis [place] I: 1 infected lt foot wound 2 interctable pain 3 htn 4 wt loss 5 covid 19 iv abx surgery on the case podietary and id consult add morphine for severe pain Matthew Vickers MD Mar 05, 2020 17:29
[2020-03-05] MEDS: Morphine Sulfate 2mg/ml Inj(IV/IM USE ONLY) IVP PRN (18:35)
[2020-03-05 20:00] VITALS: BP 101/54
[2020-03-05] MEDS: Atorvastatin 20mg tab ORAL SCH (20:32)
[2020-03-05] MEDS: HYDROcodone/Acetamin 10/325 tab ORAL PRN (20:33)
[2020-03-05] MEDS ORDERED: Atorvastatin 20mg tab ORAL SCH ×2 (21:00)
[2020-03-05] MEDS: Heparin 5000 units/ml inj SUBQ SCH (21:43)
[2020-03-06] VITALS (7 sets, daily range): BP systolic 90–123; BP diastolic 44–68
[2020-03-06] MEDS: HYDROcodone/Acetamin 10/325 tab ORAL PRN ×5 (01:38→22:08)
[2020-03-06] MEDS: Heparin 5000 units/ml inj SUBQ SCH ×3 (05:29→21:07)
--- NOTE | 2020-03-06 08:38 | Consultation ---
History of Present Illness General Date patient seen: Mar 06, 2020 Present Illness Allergies: Coded Allergies: PENICILLINS (Unverified Allergy, Unknown, 03/05/20) Uncoded Allergies: PENICILLIN (Allergy, Unknown, 08/19/19) Medication History Scheduled Ascorbic Acid* (Ascorbic Acid*), 500 MG ORAL TWICE A DAY, (Reported) Aspirin* (Aspirin*), 81 MG ORAL DAILY, (Reported) Atorvastatin Calcium* (Atorvastatin Calcium*), 40 MG ORAL BEDTIME, (Reported) Docusate Sodium* (Colace*), 100 MG ORAL DAILY, (Reported) Gabapentin* (Neurontin*), 600 MG ORAL TWICE A DAY, (Reported) Lisinopril (Lisinopril*), 20 MG ORAL DAILY, (Reported) Magnesium Hydroxide* (Milk Of Magnesia*), 30 ML ORAL DAILY, (Reported) Multivit W-Mn/Fa/Lycop/Lut/Ala (Multi-Betic Tablet), 1 TAB ORAL DAILY, (Reported) Scheduled PRN Acetaminophen* (Acetaminophen 325MG Tablet*), 325 MG ORAL Q4H PRN for Mild Pain (Pain Scale 1-3), (Reported) Acetaminophen* (Acetaminophen 325MG Tablet*), 325 MG ORAL EVERY 8 HOURS PRN for Moderate Pain (Pain Scale 4-6), (Reported) Bisacodyl (Bisacodyl), 10 MG RC DAILY PRN for bowel management if MoM ineffe, (Reported) Hydrocodone Bit/Acetaminophen 10-325* ([place] 10-325*), 1 TAB ORAL Q4H PRN for Severe Pain (Pain Scale 7-10), (Reported) Melatonin (Melatonin), 3 MG ORAL BEDTIME PRN for Insomnia, (Reported) Miscellaneous Medications Bisoprolol Fumarate (Bisoprolol Fumarate), 5 MG PO, (Reported) Discontinued Medications Bisacodyl* (Dulcolax*), 10 MG ORAL DAILY, (Reported) Discontinued Reason: Prescription changed Ferrous Sulfate* (Ferrous Sulfate*), 325 MG ORAL DAILY, (Reported) Discontinued Reason: Pt stopped taking med Ibuprofen* (Motrin*), 800 MG ORAL Q6H, (Reported) Discontinued Reason: Pt stopped taking med Patient History Healthcare decision maker Resuscitation status Advanced Directive on File Physical Exam Last 24 Hour Vital Signs Date Time Temp Pulse Resp B/P (MAP) Pulse Ox O2 Delivery O2 Flow Rate FiO2 03/06/20 06:09 98.1 03/06/20 05:30 Room Air 03/06/20 05:00 98.1 70 18 93/57 (69) 96 03/06/20 01:30 94/57 (69) 03/06/20 00:00 97.7 77 18 90/54 (66) 96 03/05/20 21:00 Room Air 03/05/20 20:00 96.6 94 18 101/54 (70) 94 03/05/20 16:00 97.2 76 19 98/63 (75) 95 03/05/20 12:00 96.8 70 16 95/55 (68) 97 03/05/20 09:00 Room Air 03/05/20 09:00 98/60 Intake and Output 03/05/20 03/06/20 19:00 07:00 Intake Total 510 ml Output Total 70 ml Balance -70 ml 510 ml Intake Oral 400 ml IV Total 110 ml Output Urine Total 70 ml # Voids 2 2 Height (Feet): 5 Height (Inches): 6.00 Weight (Pounds): 170 Medications Current Medications Medications (Trade) Dose Ordered Sig/[place] Route PRN Reason Start Time Stop Time Status Last Admin Dose Admin Acetaminophen (Tylenol) 325 mg Q4H PRN ORAL pain 1-3 03/05/20 16:00 04/04/20 15:59 Acetaminophen/ Hydrocodone Bitart ([place] 10/325) 1 tab Q4H PRN ORAL Moderate Pain (Pain Scale 4-6) 03/05/20 16:00 03/12/20 15:59 03/06/20 05:39 Ascorbic Acid (Vitamin C) 500 mg TWICE A DAY ORAL 03/05/20 18:00 04/04/20 17:59 03/05/20 17:21 Aspirin (ASA) 81 mg DAILY ORAL 03/06/20 09:00 04/20/20 08:59 Atorvastatin Calcium (Lipitor) 40 mg BEDTIME ORAL 03/05/20 21:00 06/03/20 20:59 03/05/20 20:32 Bisacodyl (Dulcolax) 10 mg DAILY ORAL 03/06/20 09:00 06/04/20 08:59 Bisoprolol Fumarate (Zebeta) 5 mg DAILY ORAL 03/06/20 09:00 04/05/20 08:59 Docusate Sodium (Colace) 100 mg DAILY ORAL 03/06/20 09:00 04/05/20 08:59 Ferrous Sulfate (Feosol) 325 mg DAILY ORAL 03/06/20 09:00 06/04/20 08:59 Heparin Sodium (Porcine) (Heparin 5000 units/ml) 5,000 units EVERY 8 HOURS SUBQ 03/05/20 22:00 04/19/20 21:59 03/06/20 05:29 Ibuprofen (Motrin) 800 mg Q6H PRN ORAL PAIN 4-6 03/05/20 16:00 04/04/20 15:59 Levofloxacin 100 ml @ 100 mls/hr Q24H IVPB 03/05/20 10:00 03/12/20 09:59 03/05/20 10:12 Lisinopril (PriniviL) 20 mg DAILY ORAL 03/06/20 09:00 04/05/20 08:59 Morphine Sulfate (Morphine Sulfate) 1 mg Q6H PRN IVP Severe Pain (Pain Scale 7-10) 03/05/20 18:30 03/12/20 18:29 03/05/20 18:35 Vancomycin HCl (Vanco pharmacy to dose) 1 ea DAILY PRN MISC Per rx protocol 03/05/20 06:45 04/04/20 06:44 Vancomycin HCl 500 mg/Dextrose 110 ml @ 110 mls/hr Q12HR@0900,2100 IVPB 03/05/20 09:00 03/10/20 08:59 03/05/20 20:33 Assessment/Plan Assessment/Plan: (1) Left above the knee amputation (2) Stump pain. (3) Right lower extremity pain (4) Dry gangrene with edema of right lower extremity (5) Covid 19+ seen dictated Homar Kumra Mar 06, 2020 08:38
[2020-03-06] MEDS: Aspirin Baby 81mg ORAL SCH (08:46)
[2020-03-06] MEDS: Ascorbic Acid 500mg tab ORAL SCH ×2 (08:46→17:31)
[2020-03-06] MEDS: Docusate 100mg cap ORAL SCH (08:46)
[2020-03-06] MEDS: Bisacodyl EC 5mg tab ORAL SCH (08:46)
[2020-03-06] MEDS: Vancomycin 500mg/D5W 110ml IVPB SCH ×4 (08:49→21:06)
[2020-03-06] MEDS: Lisinopril 20mg tab ORAL SCH (08:49)
[2020-03-06] MEDS: Morphine Sulfate 2mg/ml Inj(IV/IM USE ONLY) IVP PRN ×2 (08:49→20:11)
[2020-03-06] MEDS ORDERED: Aspirin Baby 81mg ORAL SCH (09:00)
[2020-03-06] MEDS ORDERED: Docusate 100mg cap ORAL SCH (09:00)
[2020-03-06] MEDS ORDERED: Bisacodyl EC 5mg tab ORAL SCH (09:00)
[2020-03-06] MEDS ORDERED: Lisinopril 20mg tab ORAL SCH (09:00)
--- NOTE | 2020-03-06 11:30 | Surgery Progress Note ---
Surgery Progress Note Subjective Additional Comments refusing care plan refusing labs refusing physical exam wants his pain meds no n/v Objective Last 24 Hour Vital Signs Date Time Temp Pulse Resp B/P (MAP) Pulse Ox O2 Delivery O2 Flow Rate FiO2 03/06/20 09:00 Room Air 03/06/20 08:49 113/44 03/06/20 08:00 96.7 73 18 113/44 (67) 98 03/06/20 06:09 98.1 03/06/20 05:30 Room Air 03/06/20 05:00 98.1 70 18 93/57 (69) 96 03/06/20 01:30 94/57 (69) 03/06/20 00:00 97.7 77 18 90/54 (66) 96 03/05/20 21:00 Room Air 03/05/20 20:00 96.6 94 18 101/54 (70) 94 03/05/20 16:00 97.2 76 19 98/63 (75) 95 03/05/20 12:00 96.8 70 16 95/55 (68) 97 I&O Intake and Output 03/05/20 03/06/20 19:00 07:00 Intake Total 510 ml Output Total 70 ml Balance -70 ml 510 ml Intake Oral 400 ml IV Total 110 ml Output Urine Total 70 ml # Voids 2 2 Dressing: saturated Cardiovascular: RSR Respiratory: decreased breath sounds Abdomen: soft, non-tender, present bowel sounds Extremities: edema, tenderness, cyanosis, other Plan Problems: (1) Gangrene of right foot Assessment & Plan: 64-year-old male with history of left aka which is currently stable stable. On right lower extremity he has extensive tissue loss dry gangrene with edema of right foot, ankle, distal leg. cellulitis. chronic. Afebrile hemodynamic stable labs okay. Patient mainly complaining of pain and wants more pain medication. Unsure if directly related to the extremity or potential history of dependency. The extent of the leg tissue loss is si gnificant and the likelihood of salvage is very poor. Will initiate local wound care in the meantime. Patient is Covid positive and will proceed with treatment of that prior to any consideration of amputation as this is longer chronic ongoing and amputation can be done at a later time as it has been deferred for some time now. Given the Covid status for patient safety operative team surgical and elective nature of the procedure can proceed with antibiotic local wound care and consideration of amputation future. If worsening or becomes an emergency will need emergent amputation and will be available. Thank you for letting participate patient's care wash lower extremity daily with NS, swab with betadine, apply xerofoam and abd, wrap, change daily There is generalized osteopenia. No focal cortical lucency to suggest acute osteomyelitis. There is a deformity of the fifth metatarsal head, likely the result of prior trauma. Additionally there is an overhanging osseous edge along the lateral margin of the distal fifth metatarsal which raises the possibility of a inflammatory arthropathy such as gout of the fifth metatarsophalangeal joint. No acute fracture is seen. No dislocation. Small retrocalcaneal enthesophyte. Soft tissues: There is diffuse soft tissue swelling and edema with locules of air, consistent with history of soft tissue wound. No radiopaque foreign body. IMPRESSION: Diffuse soft tissue swelling, edema with locules of air is compatible with history of soft tissue wound. No radiographic evidence of underlying osteomyelitis. An MRI is a more sensitive examination and can be performed to exclude osteomyelitis if clinically indicated. (2) COVID-19 Assessment & Plan: ++ rx pulm ID Ryan Albright Mar 06, 2020 11:30
--- NOTE | 2020-03-06 11:42 | General Progress Note ---
Subjective HEENT: Reports: no symptoms Allergies: Coded Allergies: PENICILLINS (Unverified Allergy, Unknown, 03/05/20) Uncoded Allergies: PENICILLIN (Allergy, Unknown, 08/19/19) Subjective doing ok poor complience Objective Last 24 Hour Vital Signs Date Time Temp Pulse Resp B/P (MAP) Pulse Ox O2 Delivery O2 Flow Rate FiO2 03/06/20 09:00 Room Air 03/06/20 08:49 113/44 03/06/20 08:00 96.7 73 18 113/44 (67) 98 03/06/20 06:09 98.1 03/06/20 05:30 Room Air 03/06/20 05:00 98.1 70 18 93/57 (69) 96 03/06/20 01:30 94/57 (69) 03/06/20 00:00 97.7 77 18 90/54 (66) 96 03/05/20 21:00 Room Air 03/05/20 20:00 96.6 94 18 101/54 (70) 94 03/05/20 16:00 97.2 76 19 98/63 (75) 95 03/05/20 12:00 96.8 70 16 95/55 (68) 97 Intake and Output 03/05/20 03/06/20 19:00 07:00 Intake Total 510 ml Output Total 70 ml Balance -70 ml 510 ml Intake Oral 400 ml IV Total 110 ml Output Urine Total 70 ml # Voids 2 2 Height (Feet): 5 Height (Inches): 6.00 Weight (Pounds): 170 General Appearance: alert EENT: PERRL/EOMI Neck: supple Cardiovascular: normal rate Respiratory/Chest: lungs clear Abdomen: non tender, no organomegaly - non helaing ulcer lt foot Assessment/Plan Assessment/Plan: 1 cellulitis of lt foot 2 gangrene of lt foot 3 dm 4 chronic pain 5 htn 6 ppr compleience cont iv abx pain meds id and surgery on the case dw Matthew Jean MD Mar 06, 2020 11:42
[2020-03-06] MEDS ORDERED: Gadavist 7.5mMol/7.5ml vial IV PRN ×2 (11:45)
--- NOTE | 2020-03-06 13:45 | Consultation ---
DATE OF CONSULTATION: 03/06/2020 INFECTIOUS DISEASE CONSULTATION CONSULTING PHYSICIAN: Ana Masters MD. REFERRING PHYSICIAN: Matthew Vickers MD. REASON FOR CONSULTATION: Right foot gangrene. HISTORY OF PRESENTING ILLNESS: This is a 64-year-old gentleman who came in with history of hypertension and left-sided AKA, who comes in with worsening gangrene of his right foot along with pain. He was found to have COVID-19. An Infectious Diseases consultation has been obtained for antibiotics. PAST MEDICAL HISTORY: 1. History of hypertension. 2. Left AKA. 3. Right foot gangrene. SOCIAL HISTORY: No history of smoking, alcohol, or drug use. FAMILY HISTORY: Unknown. REVIEW OF SYSTEMS: Unable to obtain. MEDICATIONS: As an inpatient, he is on lisinopril, ferrous sulfate, docusate, bisoprolol, Dulcolax, aspirin, subcutaneous heparin, atorvastatin, morphine, ascorbic acid, ibuprofen, [place], Tylenol, vancomycin, and Levaquin. ALLERGIES: He is allergic to penicillin. PHYSICAL EXAMINATION: VITAL SIGNS: Temperature 96.7, T-max of 98.1, pulse 73, respiratory rate 18, blood pressure 113/44. O2 saturation of 98% on room air. EXTREMITIES: On examination, right foot erythema and necrotic area noted. LABORATORY DATA: White count 7, hemoglobin 7.9, hematocrit 23.4, MCV 85, platelet count of 210,000, with neutrophils of 78%. Sodium 132, potassium 4.3, chloride 99, bicarb 23, BUN 58, creatinine 1.4. Glucose 112. Calcium 9.4. Ferritin more than 2000. Total bilirubin 0.3 AST 119, ALT 85, alkaline phosphatase 116. LDH 268. C-reactive protein 39.8. Beta-natriuretic peptide 1459. Total protein 7.1, albumin of 2. Chest x-ray showed no acute finding. Foot x-ray showed diffuse soft tissue swelling, edema. No radiographic evidence of underlying osteomyelitis. ASSESSMENT: This is a 64-year-old gentleman with history of hypertension and left AKA, who comes in with right foot pain and swelling and is found to have, 1. Right foot cellulitis and gangrene, would be concerned regarding osteomyelitis. 2. He was tested COVID-19 positive, on room air. 3. Hypertension. PLAN: 1. Continue IV vancomycin and Levaquin. 2. We will order an MRI of the right foot to rule out osteomyelitis. 3. Continue isolation. I would like to thank Dr. Vickers for this consultation. Ana Masters M.D. DR: MARC JOB#: [id number] CC:
--- NOTE | 2020-03-06 17:32 | Consultation ---
History of Present Illness General Date patient seen: Mar 06, 2020 Time patient seen: 13:00 Chief Complaint: Skin Rash/Abscess Referring physician: Dr. Vickers Reason for Consultation: RLE gangrene. Present Illness HPI S: Pt seen bedside for RLE gangrene. Pt has h/o COVID. He relates moderate pain to RLE. Allergies: Coded Allergies: PENICILLINS (Unverified Allergy, Unknown, 03/05/20) Uncoded Allergies: PENICILLIN (Allergy, Unknown, 08/19/19) Medication History Scheduled Ascorbic Acid* (Ascorbic Acid*), 500 MG ORAL TWICE A DAY, (Reported) Aspirin* (Aspirin*), 81 MG ORAL DAILY, (Reported) Atorvastatin Calcium* (Atorvastatin Calcium*), 40 MG ORAL BEDTIME, (Reported) Docusate Sodium* (Colace*), 100 MG ORAL DAILY, (Reported) Gabapentin* (Neurontin*), 600 MG ORAL TWICE A DAY, (Reported) Lisinopril (Lisinopril*), 20 MG ORAL DAILY, (Reported) Magnesium Hydroxide* (Milk Of Magnesia*), 30 ML ORAL DAILY, (Reported) Multivit W-Mn/Fa/Lycop/Lut/Ala (Multi-Betic Tablet), 1 TAB ORAL DAILY, (Reported) Scheduled PRN Acetaminophen* (Acetaminophen 325MG Tablet*), 325 MG ORAL Q4H PRN for Mild Pain (Pain Scale 1-3), (Reported) Acetaminophen* (Acetaminophen 325MG Tablet*), 325 MG ORAL EVERY 8 HOURS PRN for Moderate Pain (Pain Scale 4-6), (Reported) Bisacodyl (Bisacodyl), 10 MG RC DAILY PRN for bowel management if MoM ineffe, (Reported) Hydrocodone Bit/Acetaminophen 10-325* ([place] 10-325*), 1 TAB ORAL Q4H PRN for Severe Pain (Pain Scale 7-10), (Reported) Melatonin (Melatonin), 3 MG ORAL BEDTIME PRN for Insomnia, (Reported) Miscellaneous Medications Bisoprolol Fumarate (Bisoprolol Fumarate), 5 MG PO, (Reported) Discontinued Medications Bisacodyl* (Dulcolax*), 10 MG ORAL DAILY, (Reported) Discontinued Reason: Prescription changed Ferrous Sulfate* (Ferrous Sulfate*), 325 MG ORAL DAILY, (Reported) Discontinued Reason: Pt stopped taking med Ibuprofen* (Motrin*), 800 MG ORAL Q6H, (Reported) Discontinued Reason: Pt stopped taking med Patient History Healthcare decision maker Resuscitation status Advanced Directive on File Physical Exam Last 24 Hour Vital Signs Date Time Temp Pulse Resp B/P (MAP) Pulse Ox O2 Delivery O2 Flow Rate FiO2 03/06/20 16:00 97.8 69 17 123/64 (83) 97 03/06/20 12:00 97.3 79 19 119/56 (77) 96 03/06/20 09:00 Room Air 03/06/20 08:49 113/44 03/06/20 08:00 96.7 73 18 113/44 (67) 98 03/06/20 06:09 98.1 03/06/20 05:30 Room Air 03/06/20 05:00 98.1 70 18 93/57 (69) 96 03/06/20 01:30 94/57 (69) 03/06/20 00:00 97.7 77 18 90/54 (66) 96 03/05/20 21:00 Room Air 03/05/20 20:00 96.6 94 18 101/54 (70) 94 Intake and Output 03/05/20 03/06/20 19:00 07:00 Intake Total 510 ml Output Total 70 ml Balance -70 ml 510 ml Intake Oral 400 ml IV Total 110 ml Output Urine Total 70 ml # Voids 2 2 Height (Feet): 5 Height (Inches): 6.00 Weight (Pounds): 170 Medications Current Medications Medications (Trade) Dose Ordered Sig/[place] Route PRN Reason Start Time Stop Time Status Last Admin Dose Admin Acetaminophen (Tylenol) 325 mg Q4H PRN ORAL pain 1-3 03/05/20 16:00 04/04/20 15:59 Acetaminophen/ Hydrocodone Bitart ([place] 10/325) 1 tab Q4H PRN ORAL Moderate Pain (Pain Scale 4-6) 03/05/20 16:00 03/12/20 15:59 03/06/20 13:34 Ascorbic Acid (Vitamin C) 500 mg TWICE A DAY ORAL 03/05/20 18:00 04/04/20 17:59 03/06/20 08:46 Aspirin (ASA) 81 mg DAILY ORAL 03/06/20 09:00 04/20/20 08:59 03/06/20 08:46 Atorvastatin Calcium (Lipitor) 40 mg BEDTIME ORAL 03/05/20 21:00 06/03/20 20:59 03/05/20 20:32 Bisacodyl (Dulcolax) 10 mg DAILY ORAL 03/06/20 09:00 06/04/20 08:59 03/06/20 08:46 Bisoprolol Fumarate (Zebeta) 5 mg DAILY ORAL 03/06/20 09:00 04/05/20 08:59 03/06/20 08:46 Docusate Sodium (Colace) 100 mg DAILY ORAL 03/06/20 09:00 04/05/20 08:59 03/06/20 08:46 Ferrous Sulfate (Feosol) 325 mg DAILY ORAL 03/06/20 09:00 06/04/20 08:59 03/06/20 08:46 Heparin Sodium (Porcine) (Heparin 5000 units/ml) 5,000 units EVERY 8 HOURS SUBQ 03/05/20 22:00 04/19/20 21:59 03/06/20 13:37 Ibuprofen (Motrin) 800 mg Q6H PRN ORAL PAIN 4-6 03/05/20 16:00 04/04/20 15:59 Levofloxacin 100 ml @ 100 mls/hr Q24H IVPB 03/05/20 10:00 03/12/20 09:59 03/06/20 10:20 Lisinopril (PriniviL) 20 mg DAILY ORAL 03/06/20 09:00 04/05/20 08:59 03/06/20 08:49 Morphine Sulfate (Morphine Sulfate) 1 mg Q6H PRN IVP Severe Pain (Pain Scale 7-10) 03/05/20 18:30 03/12/20 18:29 03/06/20 08:49 Vancomycin HCl (Vanco pharmacy to dose) 1 ea DAILY PRN MISC Per rx protocol 03/05/20 06:45 04/04/20 06:44 Vancomycin HCl 500 mg/Dextrose 110 ml @ 110 mls/hr Q12HR@0900,2100 IVPB 03/05/20 09:00 03/10/20 08:59 03/06/20 08:49 Objective Narrative Focused RLE Exam: Derm: Extensive gangrene noted RLE distal to ankle joint. Vasc: +0/4 DP/PT pulses. Neuro: SILT diminished. MSK: MS/ROM deferred secondary to pain. Assessment/Plan Assessment/Plan: RLE Gangrene Pulm COVID (+) HTN Pt seen and evaluated. Discuss findings with patient. labs and chart reviewed. Pt will need Amputation of RLE, when COVID status has resolved. Cont IV Abx. Cont Tx per specialists. Cont local wound care RLE. No acute surgical intervention required by podiatry at this time. Podiatry will cont to monitor. Pk Pichardo DPM Mar 06, 2020 17:32
--- NOTE | 2020-03-06 19:30 | Consultation ---
DATE OF CONSULTATION: 03/06/2020 PAIN MANAGEMENT CONSULTATION CONSULTING PHYSICIAN: Daryl Lynn M.D. REFERRING PHYSICIAN: Denis Vickers M.D. PHYSICIAN PICTURE COPYIST: Allison Peck CHIEF COMPLAINT: Bilateral lower extremity pain. HISTORY OF PRESENT ILLNESS: This is a 64-year-old male who is being seen on the Med\Surg floor of [facility] for initial pain management consultation. The patient was admitted under the care of Dr. Vickers due to complaints of bilateral lower extremity pain. He has history of left above-knee amputation as well as right lower extremity pain due to being gangrene, awaiting to be seen by product safety associate, complaining of severe pain especially with movement. The pain has been tolerated on the [place] and morphine. He was started on [place] 10/325 one tablet every four hours as needed for moderate pain, morphine 1 mg IV every six hours as needed for severe pain. We were consulted so the patient would have adequate pain control while here in the hospital. PAST MEDICAL HISTORY: Hypertension, right foot gangrene, and left jgume-nee-jkuo amputation. PAST SURGICAL HISTORY: Left ozxhi-ild-todr amputation. SOCIAL HISTORY: As per the chart, denies smoking tobacco, alcohol abuse, or IV drug abuse. ALLERGIES: Penicillin. MEDICATIONS: Ascorbic acid, aspirin, atorvastatin, Colace, , lisinopril, milk of magnesia, Tylenol, Bystolic, . REVIEW OF SYSTEMS: Denies rash, fever, chills, sweating, dizziness, drowsiness, blurred vision, sore throat, or change in weight. No shortness of breath or chest pain. No nausea, vomiting, diarrhea, or blood in the stool. No dysuria. PHYSICAL EXAMINATION: GENERAL: Alert, awake, and oriented. VITAL SIGNS: Blood pressure 92/70, heart rate 70, oxygen saturation 97%, respiratory rate 18, and temperature is 98.1 degrees Fahrenheit. HEENT: PERRLA. NECK: Range of motion is full in all directions. No tenderness to paracervical muscles. No adenopathy. LUNGS: Decreased breath sounds bilaterally. HEART: S1 and S2 regular. ABDOMEN: Soft and nontender. BACK: Range of motion is decreased in flexion and extension EXTREMITIES: Lower extremity range of motion is decreased due to the patient's condition. Left ipeld-vhj-joam amputation noted. Right foot gangrene seen. ASSESSMENT AND PLAN: This is a 64-year-old male with left eigvc-xdk-qyzn amputation, stump pain, right lower extremity pain due to gangrene. COVID-19 is positive. The patient will be continued on [place] and morphine as needed. Parameters will be set to hold opiates for over-sedation, lethargy, systolic blood pressure below 90 or diastolic blood pressure below 60, respiratory rate below 12, oxygen saturation below 94%, or heart rate below 69. The patient was discussed with Dr. Lynn and Dr. Lynn concurred. We will follow the patient. Thank you very much for the courtesy of this consultation. Daryl Lynn M.D. ROSALIA Peck DR: Katy JOB#: [id number] CC:
[2020-03-06] MEDS: Atorvastatin 20mg tab ORAL SCH (20:11)
[2020-03-07] VITALS: BP 95/54
[2020-03-07] MEDS: HYDROcodone/Acetamin 10/325 tab ORAL PRN ×4 (02:40→21:26)
[2020-03-07 04:00] VITALS: BP 101/52
[2020-03-07] MEDS: Heparin 5000 units/ml inj SUBQ SCH ×2 (05:38→13:29)
[2020-03-07 06:25] LABS: BASOPHILS % (AUTO) 0.2 % (0.0-2.0); HEMATOCRIT 27.8 % (42.0-52.0); HEMOGLOBIN 8.8 G/DL (14.2-18.0); MEAN CORPUSCULAR VOLUME 88 FL (80-99); MONOCYTES % (AUTO) 7.9 % (1.0-10.0); NEUTROPHILS % (AUTO) 80.9 % (45.0-75.0); PLATELET COUNT 260 K/UL (150-450); RED BLOOD COUNT 3.17 M/UL (4.70-6.10); WHITE BLOOD COUNT 6.6 K/UL (4.8-10.8)
[2020-03-07 07:05] LABS: ALANINE AMINOTRANSFERASE 80 U/L (12-78); ALBUMIN 1.9 G/DL (3.4-5.0); ALBUMIN/GLOBULIN RATIO 0.4 (1.0-2.7); ALKALINE PHOSPHATASE 108 U/L (46-116); ANION GAP 10 mmol/L (5-15); ASPARTATE AMINO TRANSFERASE 100 U/L (15-37); BILIRUBIN,TOTAL 0.3 MG/DL (0.2-1.0); BLOOD UREA NITROGEN 44 mg/dL (7-18); CALCIUM 8.6 MG/DL (8.5-10.1); CARBON DIOXIDE 22 MMOL/L (21-32); CHLORIDE 102 MMOL/L (98-107); POTASSIUM 4.9 MMOL/L (3.5-5.1); SODIUM 134 MMOL/L (136-145)
[2020-03-07 08:00] VITALS: BP 101/60
--- NOTE | 2020-03-07 08:33 | General Progress Note ---
Subjective Date patient seen: Mar 07, 2020 Time patient seen: 07:00 - am Allergies: Coded Allergies: PENICILLINS (Unverified Allergy, Unknown, 03/05/20) Uncoded Allergies: PENICILLIN (Allergy, Unknown, 08/19/19) Subjective HISTORY OF PRESENT ILLNESS: This is a 64-year-old male who is being seen on the Med[facility]Surg floor of [facility]. In bed showing no signs of pain or distress. Continues to c/o pain which has been tolerated on the [place] and Morphine. No new complaints at this time. REVIEW OF SYSTEMS: Denies rash, fever, chills, sweating, dizziness, drowsiness, blurred vision, sore throat, or change in weight. No shortness of breath or chest pain. No nausea, vomiting, diarrhea, or blood in the stool. No dysuria. Objective Last 24 Hour Vital Signs Date Time Temp Pulse Resp B/P (MAP) Pulse Ox O2 Delivery O2 Flow Rate FiO2 03/07/20 04:00 96.6 68 16 101/52 (68) 95 03/07/20 03:10 96.6 03/07/20 00:00 96.6 67 16 95/54 (68) 97 03/06/20 21:00 Room Air 03/06/20 20:41 98.1 03/06/20 19:44 98.1 70 17 110/68 (82) 97 03/06/20 16:00 97.8 69 17 123/64 (83) 97 03/06/20 12:00 97.3 79 19 119/56 (77) 96 03/06/20 09:00 Room Air 03/06/20 08:49 113/44 Intake and Output 03/06/20 03/07/20 18:59 06:59 Intake Total 800 ml Balance 800 ml Intake Oral 800 ml # Voids 3 Laboratory Tests 03/06/20 20:00: Vancomycin Level Trough 16.8H 03/07/20 06:00: White Blood Count 6.6, Red Blood Count 3.17L, Hemoglobin 8.8L, Hematocrit 27.8L, Mean Corpuscular Volume 88, Mean Corpuscular Hemoglobin 27.8, Mean Corpuscular Hemoglobin Concent 31.6L, Red Cell Distribution Width 14.0, Platelet Count 260, Mean Platelet Volume 5.6L, Neutrophils (%) (Auto) 80.9H, Lymphocytes (%) (Auto) 11.0L, Monocytes (%) (Auto) 7.9, Eosinophils (%) (Auto) 0.0, Basophils (%) (Auto) 0.2, Sodium Level 134L, Potassium Level 4.9, Chloride Level 102, Carbon Dioxide Level 22, Anion Gap 10, Blood Urea Nitrogen 44H, Creatinine 1.0, Estimat Glomerular Filtration Rate > 60, Glucose Level 96, Calcium Level 8.6, Total Bilirubin 0.3, Aspartate Amino Transf (AST/SGOT) 100H, Alanine Aminotransferase (ALT/SGPT) 80H, Alkaline Phosphatase 108, Total Protein 6.9, Albumin 1.9L, Globulin 5.0, Albumin/Globulin Ratio 0.4L Height (Feet): 5 Height (Inches): 6.00 Weight (Pounds): 170 Objective PHYSICAL EXAMINATION: GENERAL: Alert, awake, and oriented. LUNGS: Decreased breath sounds bilaterally. HEART: S1 and S2 regular. ABDOMEN: Soft and nontender. EXTREMITIES: Lower extremity range of motion is decreased due to the patient's condition. Left bgayv-syp-zdqf amputation noted. Right foot gangrene seen. Assessment/Plan Assessment/Plan: (1) Left above the knee amputation (2) Stump pain. (3) Right lower extremity pain (4) Dry gangrene with edema of right lower extremity (5) Covid 19+ Patient to be continued on [place] and Morphine D/w Dr. Lynn and he concurred. Homar Kumar Mar 07, 2020 08:33
[2020-03-07] MEDS: Aspirin Baby 81mg ORAL SCH (08:47)
[2020-03-07] MEDS: Bisacodyl EC 5mg tab ORAL SCH (08:48)
[2020-03-07] MEDS: Ascorbic Acid 500mg tab ORAL SCH ×2 (08:48→17:41)
[2020-03-07] MEDS: Docusate 100mg cap ORAL SCH (08:48)
[2020-03-07] MEDS: Vancomycin 500mg/D5W 110ml IVPB SCH ×4 (08:48→21:09)
[2020-03-07] MEDS: Lisinopril 20mg tab ORAL SCH (08:49)
[2020-03-07] MEDS: Morphine Sulfate 2mg/ml Inj(IV/IM USE ONLY) IVP PRN (08:49)
--- NOTE | 2020-03-07 11:42 | Infectious Diseases Prog Note ---
Assessment/Plan Assessment/Plan antibiotics : vancomycin iv, levoquin A 1. Right foot cellulitis and gangrene, would be concerned regarding osteomyelitis. 2. He was tested COVID-19 positive on room air. 3. Hypertension. P 1. Continue IV vancomycin and Levaquin. 2. will follow up cultures 3. Continue isolation. 4. plan per podiatry Subjective Constitutional: Denies: fever, chills Respiratory: Denies: shortness of breath, dry cough Gastrointestinal/Abdominal: Denies: nausea, vomiting, diarrhea Musculoskeletal: Reports: pain - in right leg Allergies: Coded Allergies: PENICILLINS (Unverified Allergy, Unknown, 03/05/20) Uncoded Allergies: PENICILLIN (Allergy, Unknown, 08/19/19) Objective Last 24 Hour Vital Signs Date Time Temp Pulse Resp B/P (MAP) Pulse Ox O2 Delivery O2 Flow Rate FiO2 03/07/20 09:00 Room Air 03/07/20 08:49 101/60 03/07/20 08:00 96.6 72 18 101/60 (74) 96 03/07/20 04:00 96.6 68 16 101/52 (68) 95 03/07/20 03:10 96.6 03/07/20 00:00 96.6 67 16 95/54 (68) 97 03/06/20 21:00 Room Air 03/06/20 20:41 98.1 03/06/20 19:44 98.1 70 17 110/68 (82) 97 03/06/20 16:00 97.8 69 17 123/64 (83) 97 03/06/20 12:00 97.3 79 19 119/56 (77) 96 Height (Feet): 5 Height (Inches): 6.00 Weight (Pounds): 170 Extremities: other - right foot in dressings Microbiology Date/Time Source Procedure Growth Status 03/04/20 20:00 Blood Blood Culture - Preliminary NO GROWTH AFTER 48 HOURS Resulted 03/04/20 19:46 Nasopharynx SARS-CoV-2 RdRp Gene Assay - Final Complete 03/04/20 19:45 Blood Blood Culture - Preliminary NO GROWTH AFTER 48 HOURS Resulted Laboratory Tests Test 03/06/20 20:00 03/07/20 06:00 Vancomycin Level Trough 16.8 ug/mL (5.0-12.0) H White Blood Count 6.6 K/UL (4.8-10.8) Red Blood Count 3.17 M/UL (4.70-6.10) L Hemoglobin 8.8 G/DL (14.2-18.0) L Hematocrit 27.8 % (42.0-52.0) L Mean Corpuscular Volume 88 FL (80-99) Mean Corpuscular Hemoglobin 27.8 PG (27.0-31.0) Mean Corpuscular Hemoglobin Concent 31.6 G/DL (32.0-36.0) L Red Cell Distribution Width 14.0 % (11.6-14.8) Platelet Count 260 K/UL (150-450) Mean Platelet Volume 5.6 FL (6.5-10.1) L Neutrophils (%) (Auto) 80.9 % (45.0-75.0) H Lymphocytes (%) (Auto) 11.0 % (20.0-45.0) L Monocytes (%) (Auto) 7.9 % (1.0-10.0) Eosinophils (%) (Auto) 0.0 % (0.0-3.0) Basophils (%) (Auto) 0.2 % (0.0-2.0) Sodium Level 134 MMOL/L (136-145) L Potassium Level 4.9 MMOL/L (3.5-5.1) Chloride Level 102 MMOL/L (98-107) Carbon Dioxide Level 22 MMOL/L (21-32) Anion Gap 10 mmol/L (5-15) Blood Urea Nitrogen 44 mg/dL (7-18) H Creatinine 1.0 MG/DL (0.55-1.30) Estimat Glomerular Filtration Rate > 60 mL/min (>60) Glucose Level 96 MG/DL (74-106) Calcium Level 8.6 MG/DL (8.5-10.1) Total Bilirubin 0.3 MG/DL (0.2-1.0) Aspartate Amino Transf (AST/SGOT) 100 U/L (15-37) H Alanine Aminotransferase (ALT/SGPT) 80 U/L (12-78) H Alkaline Phosphatase 108 U/L (46-116) Total Protein 6.9 G/DL (6.4-8.2) Albumin 1.9 G/DL (3.4-5.0) L Globulin 5.0 g/dL Albumin/Globulin Ratio 0.4 (1.0-2.7) L Current Medications Medications (Trade) Dose Ordered Sig/[place] Route PRN Reason Start Time Stop Time Status Last Admin Dose Admin Acetaminophen (Tylenol) 325 mg Q4H PRN ORAL pain 1-3 03/05/20 16:00 04/04/20 15:59 Acetaminophen/ Hydrocodone Bitart ([place] 10/325) 1 tab Q4H PRN ORAL Moderate Pain (Pain Scale 4-6) 03/05/20 16:00 03/12/20 15:59 03/07/20 02:40 Ascorbic Acid (Vitamin C) 500 mg TWICE A DAY ORAL 03/05/20 18:00 04/04/20 17:59 03/07/20 08:48 Aspirin (ASA) 81 mg DAILY ORAL 03/06/20 09:00 04/20/20 08:59 03/07/20 08:47 Atorvastatin Calcium (Lipitor) 40 mg BEDTIME ORAL 03/05/20 21:00 06/03/20 20:59 03/06/20 20:11 Bisacodyl (Dulcolax) 10 mg DAILY ORAL 03/06/20 09:00 06/04/20 08:59 03/07/20 08:48 Bisoprolol Fumarate (Zebeta) 5 mg DAILY ORAL 03/06/20 09:00 04/05/20 08:59 03/07/20 08:48 Docusate Sodium (Colace) 100 mg DAILY ORAL 03/06/20 09:00 04/05/20 08:59 03/07/20 08:48 Ferrous Sulfate (Feosol) 325 mg DAILY ORAL 03/06/20 09:00 06/04/20 08:59 03/07/20 08:47 Gadobutrol (Gadavist) 7.5 mmol NOW PRN IV Radiology Procedure 03/07/20 11:45 03/11/20 11:44 Gadobutrol (Gadavist) 7.5 mmol NOW PRN IV Radiology Procedure 03/07/20 11:45 03/11/20 11:44 Heparin Sodium (Porcine) (Heparin 5000 units/ml) 5,000 units EVERY 8 HOURS SUBQ 03/05/20 22:00 04/19/20 21:59 03/07/20 05:38 Ibuprofen (Motrin) 800 mg Q6H PRN ORAL PAIN 4-6 03/05/20 16:00 04/04/20 15:59 Levofloxacin 100 ml @ 100 mls/hr Q24H IVPB 03/05/20 10:00 03/12/20 09:59 03/07/20 10:59 Lisinopril (PriniviL) 20 mg DAILY ORAL 03/06/20 09:00 04/05/20 08:59 03/06/20 08:49 Morphine Sulfate (Morphine Sulfate) 1 mg Q6H PRN IVP Severe Pain (Pain Scale 7-10) 03/05/20 18:30 03/12/20 18:29 03/07/20 08:49 Vancomycin HCl (Vanco pharmacy to dose) 1 ea DAILY PRN MISC Per rx protocol 03/05/20 06:45 04/04/20 06:44 Vancomycin HCl 500 mg/Dextrose 110 ml @ 110 mls/hr Q12HR@0900,2100 IVPB 03/05/20 09:00 03/10/20 08:59 03/07/20 08:48 Ana Masters MD Mar 07, 2020 11:42
[2020-03-07] MEDS ORDERED: Gadavist 7.5mMol/7.5ml vial IV PRN ×2 (11:45)
[2020-03-07 12:00] VITALS: BP 99/65
[2020-03-07 16:00] VITALS: BP 96/57
--- NOTE | 2020-03-07 16:23 | General Progress Note ---
Subjective Allergies: Coded Allergies: PENICILLINS (Unverified Allergy, Unknown, 03/05/20) Uncoded Allergies: PENICILLIN (Allergy, Unknown, 08/19/19) Subjective doing ok poor complience refusing for mri Objective Last 24 Hour Vital Signs Date Time Temp Pulse Resp B/P (MAP) Pulse Ox O2 Delivery O2 Flow Rate FiO2 03/07/20 12:00 97.3 68 18 99/65 (76) 96 03/07/20 09:00 Room Air 03/07/20 08:49 101/60 03/07/20 08:00 96.6 72 18 101/60 (74) 96 03/07/20 04:00 96.6 68 16 101/52 (68) 95 03/07/20 03:10 96.6 03/07/20 00:00 96.6 67 16 95/54 (68) 97 03/06/20 21:00 Room Air 03/06/20 20:41 98.1 03/06/20 19:44 98.1 70 17 110/68 (82) 97 Intake and Output 03/06/20 03/07/20 19:00 07:00 Intake Total 800 ml Balance 800 ml Intake Oral 800 ml # Voids 3 Laboratory Tests 03/06/20 20:00: Vancomycin Level Trough 16.8H 03/07/20 06:00: White Blood Count 6.6, Red Blood Count 3.17L, Hemoglobin 8.8L, Hematocrit 27.8L, Mean Corpuscular Volume 88, Mean Corpuscular Hemoglobin 27.8, Mean Corpuscular Hemoglobin Concent 31.6L, Red Cell Distribution Width 14.0, Platelet Count 260, Mean Platelet Volume 5.6L, Neutrophils (%) (Auto) 80.9H, Lymphocytes (%) (Auto) 11.0L, Monocytes (%) (Auto) 7.9, Eosinophils (%) (Auto) 0.0, Basophils (%) (Auto) 0.2, Sodium Level 134L, Potassium Level 4.9, Chloride Level 102, Carbon Dioxide Level 22, Anion Gap 10, Blood Urea Nitrogen 44H, Creatinine 1.0, Estimat Glomerular Filtration Rate > 60, Glucose Level 96, Calcium Level 8.6, Total Bilirubin 0.3, Aspartate Amino Transf (AST/SGOT) 100H, Alanine Aminotransferase (ALT/SGPT) 80H, Alkaline Phosphatase 108, Total Protein 6.9, Albumin 1.9L, Globulin 5.0, Albumin/Globulin Ratio 0.4L Height (Feet): 5 Height (Inches): 6.00 Weight (Pounds): 170 General Appearance: alert EENT: PERRL/EOMI Neck: supple Cardiovascular: regular rhythm Respiratory/Chest: normal breath sounds Abdomen: non tender - non heling ulcer and gangrene, soft Assessment/Plan Assessment/Plan: 1 cellulitis of lt foot 2 gangrene of lt foot 3 dm 4 chronic pain 5 htn 6 ppr compleience cont iv abx pain meds id and surgery on the case dw Matthew Jean MD Mar 07, 2020 16:23
--- NOTE | 2020-03-07 18:23 | Surgery Progress Note ---
Surgery Progress Note Subjective Additional Comments non compliant refusing dressings refused MRI leg stable Objective Last 24 Hour Vital Signs Date Time Temp Pulse Resp B/P (MAP) Pulse Ox O2 Delivery O2 Flow Rate FiO2 03/07/20 16:00 97.3 76 20 96/57 (70) 95 03/07/20 12:00 97.3 68 18 99/65 (76) 96 03/07/20 09:00 Room Air 03/07/20 08:49 101/60 03/07/20 08:00 96.6 72 18 101/60 (74) 96 03/07/20 04:00 96.6 68 16 101/52 (68) 95 03/07/20 03:10 96.6 03/07/20 00:00 96.6 67 16 95/54 (68) 97 03/06/20 21:00 Room Air 03/06/20 20:41 98.1 03/06/20 19:44 98.1 70 17 110/68 (82) 97 I&O Intake and Output 03/06/20 03/07/20 19:00 07:00 Intake Total 800 ml Balance 800 ml Intake Oral 800 ml # Voids 3 Dressing: saturated Cardiovascular: RSR Respiratory: decreased breath sounds Abdomen: non-tender, present bowel sounds Extremities: edema, other Laboratory Tests Test 03/06/20 20:00 03/07/20 06:00 03/07/20 17:50 Vancomycin Level Trough 16.8 ug/mL (5.0-12.0) H White Blood Count 6.6 K/UL (4.8-10.8) Red Blood Count 3.17 M/UL (4.70-6.10) L Hemoglobin 8.8 G/DL (14.2-18.0) L Hematocrit 27.8 % (42.0-52.0) L Mean Corpuscular Volume 88 FL (80-99) Mean Corpuscular Hemoglobin 27.8 PG (27.0-31.0) Mean Corpuscular Hemoglobin Concent 31.6 G/DL (32.0-36.0) L Red Cell Distribution Width 14.0 % (11.6-14.8) Platelet Count 260 K/UL (150-450) Mean Platelet Volume 5.6 FL (6.5-10.1) L Neutrophils (%) (Auto) 80.9 % (45.0-75.0) H Lymphocytes (%) (Auto) 11.0 % (20.0-45.0) L Monocytes (%) (Auto) 7.9 % (1.0-10.0) Eosinophils (%) (Auto) 0.0 % (0.0-3.0) Basophils (%) (Auto) 0.2 % (0.0-2.0) Sodium Level 134 MMOL/L (136-145) L Potassium Level 4.9 MMOL/L (3.5-5.1) Chloride Level 102 MMOL/L (98-107) Carbon Dioxide Level 22 MMOL/L (21-32) Anion Gap 10 mmol/L (5-15) Blood Urea Nitrogen 44 mg/dL (7-18) H Creatinine 1.0 MG/DL (0.55-1.30) Estimat Glomerular Filtration Rate > 60 mL/min (>60) Glucose Level 96 MG/DL (74-106) Calcium Level 8.6 MG/DL (8.5-10.1) Total Bilirubin 0.3 MG/DL (0.2-1.0) Aspartate Amino Transf (AST/SGOT) 100 U/L (15-37) H Alanine Aminotransferase (ALT/SGPT) 80 U/L (12-78) H Alkaline Phosphatase 108 U/L (46-116) Total Protein 6.9 G/DL (6.4-8.2) Albumin 1.9 G/DL (3.4-5.0) L Globulin 5.0 g/dL Albumin/Globulin Ratio 0.4 (1.0-2.7) L Stool Occult Blood Pending Plan Problems: (1) Gangrene of right foot Assessment & Plan: 64-year-old male with history of left aka which is currently stable stable. On right lower extremity he has extensive tissue loss dry gangrene with edema of right foot, ankle, distal leg. cellulitis. chronic. Afebrile hemodynamic stable labs okay. Patient mainly complaining of pain and wants more pain medication. Unsure if directly related to the extremity or potential history of dependency. The extent of the leg tissue loss is significant and the likelihood of salvage is very poor. Will initiate local wound care in the meantime. Patient is Covid positive and will proceed with treatment of that prior to any consideration of amputation as this is longer chronic ongoing and amputation can be done at a later time as it has been deferred for some time now. Given the Covid status for patient safety operative team surgical and elective nature of the procedure can proceed with antibiotic local wound care and consideration of amputation future. If worsening or becomes an emergency will need emergent amputation and will be available. Thank you for letting participate patient's care wash lower extremity daily with NS, swab with betadine, apply xerofoam and abd, wrap, change daily appreciate podiatry input patient refusing care plan and non compliant There is generalized osteopenia. No focal cortical lucency to suggest acute osteomyelitis. There is a deformity of the fifth metatarsal head, likely the result of prior trauma. Additionally there is an overhanging osseous edge along the lateral margin of the distal fifth metatarsal which raises the possibility of a inflammatory arthropathy such as gout of the fifth metatarsophalangeal joint. No acute fracture is seen. No dislocation. Small retrocalcaneal enthesophyte. Soft tissues: There is diffuse soft tissue swelling and edema with locules of air, consistent with history of soft tissue wound. No radiopaque foreign body. IMPRESSION: Diffuse soft tissue swelling, edema with locules of air is compatible with history of soft tissue wound. No radiographic evidence of underlying osteomyelitis. An MRI is a more sensitive examination and can be performed to exclude osteomyelitis if clinically indicated. (2) COVID-19 Assessment & Plan: ++ rx pulm ID Ryan Albright Mar 07, 2020 18:23
[2020-03-07 20:30] VITALS: BP 96/60
[2020-03-07] MEDS: Atorvastatin 20mg tab ORAL SCH (21:09)
[2020-03-08 04:00] VITALS: BP 93/67
[2020-03-08 08:00] VITALS: BP 90/61
[2020-03-08] MEDS: Docusate 100mg cap ORAL SCH (09:00)
[2020-03-08] MEDS: Lisinopril 20mg tab ORAL SCH ×2 (09:00→10:11)
[2020-03-08] MEDS: Bisacodyl EC 5mg tab ORAL SCH (09:00)
[2020-03-08] MEDS: Vancomycin 500mg/D5W 110ml IVPB SCH ×4 (10:13→20:12)
[2020-03-08] MEDS: Ascorbic Acid 500mg tab ORAL SCH ×2 (10:14→17:30)
[2020-03-08] MEDS: Aspirin Baby 81mg ORAL SCH (10:14)
--- NOTE | 2020-03-08 10:30 | Surgery Progress Note ---
Surgery Progress Note Subjective Additional Comments afebrile HD stable dressings going well tolerating diet +bm covid tx d/c planning Objective Last 24 Hour Vital Signs Date Time Temp Pulse Resp B/P (MAP) Pulse Ox O2 Delivery O2 Flow Rate FiO2 03/08/20 10:11 90/61 03/08/20 09:00 90/61 03/08/20 04:00 99.1 95 18 93/67 (76) 94 03/07/20 21:57 97.3 03/07/20 20:30 98.5 85 18 96/60 (72) 97 03/07/20 20:13 Room Air 03/07/20 16:00 97.3 76 20 96/57 (70) 95 03/07/20 12:00 97.3 68 18 99/65 (76) 96 I&O Intake and Output 03/07/20 03/08/20 19:00 07:00 Intake Total 570 ml Output Total 350 ml Balance -350 ml 570 ml Intake Oral 460 ml IV Total 110 ml Output Urine Total 350 ml # Voids 4 # Bowel Movements 1 Dressing: saturated Cardiovascular: RSR Respiratory: decreased breath sounds Abdomen: soft, non-tender, present bowel sounds Extremities: other Laboratory Tests Test 03/07/20 17:50 Stool Occult Blood Pending Plan Problems: (1) Gangrene of right foot Assessment & Plan: 64-year-old male with history of left aka which is currently stable stable. On right lower extremity he has extensive tissue loss dry gangrene with edema of right foot, ankle, distal leg. cellulitis. chronic. Afebrile hemodynamic stable labs okay. Patient mainly complaining of pain and wants more pain medication. Unsure if directly related to the extremity or potential history of dependency. The extent of the leg tissue loss is significant and the likelihood of salvage is very poor. Will initiate local wound care in the meantime. Patient is Covid positive and will proceed with treatment of that prior to any consideration of amputation as this is longer chronic ongoing and amputation can be done at a later time as it has been deferred for some time now. Given the Covid status for patient safety operative team surgical and elective nature of the procedure can proceed with antibiotic local wound care and consideration of amputation future. If worsening or becomes an emergency will need emergent amputation and will be available. Thank you for letting participate patient's care wash lower extremity daily with NS, swab with betadine, apply xerofoam and abd, wrap, change daily appreciate podiatry input patient refusing care plan and non compliant d/c planning covid tx chronic wounds and ongoing problem for some time will need amputation right side at later time cont local wound care There is generalized osteopenia. No focal cortical lucency to suggest acute osteomyelitis. There is a deformity of the fifth metatarsal head, likely the result of prior trauma. Additionally there is an overhanging osseous edge along the lateral margin of the distal fifth metatarsal which raises the possibility of a inflammatory arthropathy such as gout of the fifth metatarsophalangeal joint. No acute fracture is seen. No dislocation. Small retrocalcaneal enthesophyte. Soft tissues: There is diffuse soft tissue swelling and edema with locules of air, consistent with history of soft tissue wound. No radiopaque foreign body. IMPRESSION: Diffuse soft tissue swelling, edema with locules of air is compatible with history of soft tissue wound. No radiographic evidence of underlying osteomyelitis. An MRI is a more sensitive examination and can be performed to exclude osteomyelitis if clinically indicated. (2) COVID-19 Assessment & Plan: ++ rx pulm ID Ryan Albright Mar 08, 2020 10:30
[2020-03-08 12:00] VITALS: BP 97/59
--- NOTE | 2020-03-08 12:22 | General Progress Note ---
Subjective Allergies: Coded Allergies: PENICILLINS (Unverified Allergy, Unknown, 03/05/20) Uncoded Allergies: PENICILLIN (Allergy, Unknown, 08/19/19) Subjective doing ok poor complience Objective Last 24 Hour Vital Signs Date Time Temp Pulse Resp B/P (MAP) Pulse Ox O2 Delivery O2 Flow Rate FiO2 03/08/20 10:44 99.1 03/08/20 10:11 90/61 03/08/20 09:00 90/61 03/08/20 04:00 99.1 95 18 93/67 (76) 94 03/07/20 21:57 97.3 03/07/20 20:30 98.5 85 18 96/60 (72) 97 03/07/20 20:13 Room Air 03/07/20 16:00 97.3 76 20 96/57 (70) 95 Intake and Output 03/07/20 03/08/20 19:00 07:00 Intake Total 570 ml Output Total 350 ml Balance -350 ml 570 ml Intake Oral 460 ml IV Total 110 ml Output Urine Total 350 ml # Voids 4 # Bowel Movements 1 Laboratory Tests 03/07/20 17:50: Stool Occult Blood [Pending] Height (Feet): 5 Height (Inches): 6.00 Weight (Pounds): 170 Assessment/Plan Assessment/Plan: 1 cellulitis of lt foot 2 gangrene of lt foot 3 dm 4 chronic pain 5 htn 6 ppr compleience cont iv abx pain meds id and surgery on the case Matthew Friend MD Mar 08, 2020 12:22
--- NOTE | 2020-03-08 14:46 | General Progress Note ---
Subjective Date patient seen: Mar 08, 2020 Time patient seen: 01:30 - pm Allergies: Coded Allergies: PENICILLINS (Unverified Allergy, Unknown, 03/05/20) Uncoded Allergies: PENICILLIN (Allergy, Unknown, 08/19/19) Subjective HISTORY OF PRESENT ILLNESS: This is a 64-year-old male who is being seen on the Med\Surg floor of [facility]. Patient in bed and showing no signs of pain or distress. Using the Finger and Morphine as needed. No new complaints at this time. REVIEW OF SYSTEMS: Denies rash, fever, chills, sweating, dizziness, drowsiness, blurred vision, sore throat, or change in weight. No shortness of breath or chest pain. No nausea, vomiting, diarrhea, or blood in the stool. No dysuria. Objective Last 24 Hour Vital Signs Date Time Temp Pulse Resp B/P (MAP) Pulse Ox O2 Delivery O2 Flow Rate FiO2 03/08/20 12:00 97.3 76 18 97/59 (72) 97 03/08/20 10:44 99.1 03/08/20 10:11 90/61 03/08/20 09:00 90/61 03/08/20 09:00 Room Air 03/08/20 08:00 97.2 90 18 90/61 (71) 94 03/08/20 04:00 99.1 95 18 93/67 (76) 94 03/07/20 21:57 97.3 03/07/20 20:30 98.5 85 18 96/60 (72) 97 03/07/20 20:13 Room Air 03/07/20 16:00 97.3 76 20 96/57 (70) 95 Intake and Output 03/07/20 03/08/20 19:00 07:00 Intake Total 570 ml Output Total 350 ml Balance -350 ml 570 ml Intake Oral 460 ml IV Total 110 ml Output Urine Total 350 ml # Voids 4 # Bowel Movements 1 Laboratory Tests 03/07/20 17:50: Stool Occult Blood Positive Height (Feet): 5 Height (Inches): 6.00 Weight (Pounds): 170 Objective PHYSICAL EXAMINATION: GENERAL: Alert, awake, and oriented. LUNGS: Decreased breath sounds bilaterally. HEART: S1 and S2 regular. ABDOMEN: Soft and nontender. EXTREMITIES: Lower extremity range of motion is decreased due to the patient's condition. Left [id number] amputation noted. Right foot gangrene seen. Assessment/Plan Assessment/Plan: (1) Left above the knee amputation (2) Stump pain. (3) Right lower extremity pain (4) Dry gangrene with edema of right lower extremity (5) Covid 19+ Patient to be continued on Finger and Morphine D/w Dr. Lynn and he concurred. Homar Kumar Mar 08, 2020 14:46
--- NOTE | 2020-03-08 15:05 | Infectious Diseases Prog Note ---
Assessment/Plan Assessment/Plan A 1. Right foot cellulitis and gangrene, would be concerned regarding osteomyelitis. 2. He was tested COVID-19 positive on room air. 3. Hypertension. 4. Peripheral vascular disease P 1. Continue IV vancomycin and Levaquin. 2. will follow up cultures 3. Continue isolation. Subjective ROS Limited/Unobtainable: No Constitutional: Reports: no symptoms Gastrointestinal/Abdominal: Reports: no symptoms Genitourinary: Reports: no symptoms Musculoskeletal: Reports: pain, other - right foot Allergies: Coded Allergies: PENICILLINS (Unverified Allergy, Unknown, 03/05/20) Uncoded Allergies: PENICILLIN (Allergy, Unknown, 08/19/19) Objective Last 24 Hour Vital Signs Date Time Temp Pulse Resp B/P (MAP) Pulse Ox O2 Delivery O2 Flow Rate FiO2 03/08/20 12:00 97.3 76 18 97/59 (72) 97 03/08/20 10:44 99.1 03/08/20 10:11 90/61 03/08/20 09:00 90/61 03/08/20 09:00 Room Air 03/08/20 08:00 97.2 90 18 90/61 (71) 94 03/08/20 04:00 99.1 95 18 93/67 (76) 94 03/07/20 21:57 97.3 03/07/20 20:30 98.5 85 18 96/60 (72) 97 03/07/20 20:13 Room Air 03/07/20 16:00 97.3 76 20 96/57 (70) 95 Height (Feet): 5 Height (Inches): 6.00 Weight (Pounds): 170 General Appearance: no acute distress HEENT: mucous membranes moist Respiratory/Chest: lungs clear Cardiovascular: normal rate Abdomen: soft, non tender Extremities: other - R leg edema, left AKA Skin: ulcers, other - right foot necrotic skin Neurologic/Psychiatric: alert, responsive Laboratory Tests Test 03/07/20 17:50 Stool Occult Blood Positive (NEGATIVE) Current Medications Medications (Trade) Dose Ordered Sig/[place] Route PRN Reason Start Time Stop Time Status Last Admin Dose Admin Acetaminophen (Tylenol) 325 mg Q4H PRN ORAL pain 1-3 03/05/20 16:00 04/04/20 15:59 Acetaminophen/ Hydrocodone Bitart ([place] 10/325) 1 tab Q4H PRN ORAL Moderate Pain (Pain Scale 4-6) 03/05/20 16:00 03/12/20 15:59 03/07/20 21:26 Ascorbic Acid (Vitamin C) 500 mg TWICE A DAY ORAL 03/05/20 18:00 04/04/20 17:59 03/08/20 10:14 Aspirin (ASA) 81 mg DAILY ORAL 03/06/20 09:00 04/20/20 08:59 03/08/20 10:14 Atorvastatin Calcium (Lipitor) 40 mg BEDTIME ORAL 03/05/20 21:00 06/03/20 20:59 03/07/20 21:09 Bisacodyl (Dulcolax) 10 mg DAILY ORAL 03/06/20 09:00 06/04/20 08:59 03/07/20 08:48 Bisoprolol Fumarate (Zebeta) 5 mg DAILY ORAL 03/06/20 09:00 04/05/20 08:59 03/07/20 08:48 Docusate Sodium (Colace) 100 mg DAILY ORAL 03/06/20 09:00 04/05/20 08:59 03/07/20 08:48 Ferrous Sulfate (Feosol) 325 mg DAILY ORAL 03/06/20 09:00 06/04/20 08:59 03/08/20 10:14 Gadobutrol (Gadavist) 7.5 mmol NOW PRN IV Radiology Procedure 03/07/20 11:45 03/11/20 11:44 Gadobutrol (Gadavist) 7.5 mmol NOW PRN IV Radiology Procedure 03/07/20 11:45 03/11/20 11:44 Ibuprofen (Motrin) 800 mg Q6H PRN ORAL PAIN 4-6 03/05/20 16:00 04/04/20 15:59 03/08/20 10:14 Levofloxacin 100 ml @ 100 mls/hr Q24H IVPB 03/05/20 10:00 03/12/20 09:59 03/08/20 10:00 Lisinopril (PriniviL) 20 mg DAILY ORAL 03/06/20 09:00 04/05/20 08:59 03/06/20 08:49 Morphine Sulfate (Morphine Sulfate) 1 mg Q6H PRN IVP Severe Pain (Pain Scale 7-10) 03/05/20 18:30 03/12/20 18:29 03/07/20 08:49 Vancomycin HCl (Vanco pharmacy to dose) 1 ea DAILY PRN MISC Per rx protocol 03/05/20 06:45 04/04/20 06:44 Vancomycin HCl 500 mg/Dextrose 110 ml @ 110 mls/hr Q12HR@0900,2100 IVPB 03/05/20 09:00 03/10/20 08:59 03/08/20 10:13 Timi Kasper MD Mar 08, 2020 15:05
[2020-03-08] MEDS: HYDROcodone/Acetamin 10/325 tab ORAL PRN ×2 (15:29→20:11)
[2020-03-08 16:00] VITALS: BP 113/58
[2020-03-08 20:00] VITALS: BP 98/53
[2020-03-08] MEDS: Atorvastatin 20mg tab ORAL SCH (20:11)
[2020-03-09] VITALS: BP 97/51
[2020-03-09] MEDS: HYDROcodone/Acetamin 10/325 tab ORAL PRN ×5 (01:10→20:55)
[2020-03-09 04:00] VITALS: BP 98/48
[2020-03-09 08:00] VITALS: BP 99/51
[2020-03-09] MEDS: Vancomycin 500mg/D5W 110ml IVPB SCH ×4 (08:42→20:55)
[2020-03-09] MEDS: Aspirin Baby 81mg ORAL SCH (09:04)
[2020-03-09] MEDS: Docusate 100mg cap ORAL SCH (09:04)
[2020-03-09] MEDS: Ascorbic Acid 500mg tab ORAL SCH ×2 (09:05→17:17)
[2020-03-09] MEDS: Bisacodyl EC 5mg tab ORAL SCH (09:05)
[2020-03-09 11:39] VITALS: BP 100/68
--- NOTE | 2020-03-09 11:46 | Infectious Diseases Prog Note ---
Assessment/Plan Assessment/Plan antibiotics : vancomycin iv, levoquin A 1. Right foot cellulitis and gangrene, would be concerned regarding osteomyelitis. 2. He was tested COVID-19 positive on room air. 3. Hypertension. P 1. Continue IV vancomycin and Levaquin. 2. will follow up cultures 3. Continue isolation. Subjective ROS Limited/Unobtainable: Yes Allergies: Coded Allergies: PENICILLINS (Unverified Allergy, Unknown, 03/05/20) Uncoded Allergies: PENICILLIN (Allergy, Unknown, 08/19/19) Objective Last 24 Hour Vital Signs Date Time Temp Pulse Resp B/P (MAP) Pulse Ox O2 Delivery O2 Flow Rate FiO2 03/09/20 11:39 97.8 80 18 100/68 (79) 98 03/09/20 09:00 Room Air 03/09/20 08:00 97.2 75 18 99/51 (67) 98 03/09/20 04:00 98.5 75 18 98/48 (65) 96 03/09/20 00:00 98.2 79 18 97/51 (66) 96 03/08/20 21:00 Room Air 03/08/20 20:00 97.9 74 18 98/53 (68) 96 03/08/20 16:00 98.2 69 18 113/58 (76) 95 03/08/20 15:59 97.3 03/08/20 12:00 97.3 76 18 97/59 (72) 97 Height (Feet): 5 Height (Inches): 6.00 Weight (Pounds): 170 Current Medications Medications (Trade) Dose Ordered Sig/[place] Route PRN Reason Start Time Stop Time Status Last Admin Dose Admin Acetaminophen (Tylenol) 325 mg Q4H PRN ORAL pain 1-3 03/05/20 16:00 04/04/20 15:59 Acetaminophen/ Hydrocodone Bitart ([place] 10/325) 1 tab Q4H PRN ORAL Moderate Pain (Pain Scale 4-6) 03/05/20 16:00 03/12/20 15:59 03/09/20 05:38 Ascorbic Acid (Vitamin C) 500 mg TWICE A DAY ORAL 03/05/20 18:00 04/04/20 17:59 03/09/20 09:05 Aspirin (ASA) 81 mg DAILY ORAL 03/06/20 09:00 04/20/20 08:59 03/09/20 09:04 Atorvastatin Calcium (Lipitor) 40 mg BEDTIME ORAL 03/05/20 21:00 06/03/20 20:59 03/08/20 20:11 Bisacodyl (Dulcolax) 10 mg DAILY ORAL 03/06/20 09:00 06/04/20 08:59 03/09/20 09:05 Bisoprolol Fumarate (Zebeta) 5 mg DAILY ORAL 03/06/20 09:00 04/05/20 08:59 03/07/20 08:48 Docusate Sodium (Colace) 100 mg DAILY ORAL 03/06/20 09:00 04/05/20 08:59 03/09/20 09:04 Ferrous Sulfate (Feosol) 325 mg DAILY ORAL 03/06/20 09:00 06/04/20 08:59 03/09/20 09:04 Gadobutrol (Gadavist) 7.5 mmol NOW PRN IV Radiology Procedure 03/07/20 11:45 03/11/20 11:44 Gadobutrol (Gadavist) 7.5 mmol NOW PRN IV Radiology Procedure 03/07/20 11:45 03/11/20 11:44 Ibuprofen (Motrin) 800 mg Q6H PRN ORAL PAIN 4-6 03/05/20 16:00 04/04/20 15:59 03/08/20 10:14 Levofloxacin 100 ml @ 100 mls/hr Q24H IVPB 03/05/20 10:00 03/12/20 09:59 03/09/20 09:56 Lisinopril (PriniviL) 20 mg DAILY ORAL 03/06/20 09:00 04/05/20 08:59 03/06/20 08:49 Morphine Sulfate (Morphine Sulfate) 1 mg Q6H PRN IVP Severe Pain (Pain Scale 7-10) 03/05/20 18:30 03/12/20 18:29 03/07/20 08:49 Vancomycin HCl (Vanco pharmacy to dose) 1 ea DAILY PRN MISC Per rx protocol 03/05/20 06:45 04/04/20 06:44 Vancomycin HCl 500 mg/Dextrose 110 ml @ 110 mls/hr Q12HR@0900,2100 IVPB 03/05/20 09:00 03/10/20 08:59 03/09/20 08:42 Ana Masters MD Mar 09, 2020 11:46
--- NOTE | 2020-03-09 11:55 | General Progress Note ---
Subjective Date patient seen: Mar 09, 2020 Time patient seen: 11:00 - am Allergies: Coded Allergies: PENICILLINS (Unverified Allergy, Unknown, 03/05/20) Uncoded Allergies: PENICILLIN (Allergy, Unknown, 08/19/19) Subjective HISTORY OF PRESENT ILLNESS: This is a 64-year-old male who is being seen on the Med\Surg floor of [facility]. Patient showing no signs of pain or distress. Has received 4 doses of [place] in the last 24hrs, no Morphine has been administered. No new complaints at this time . REVIEW OF SYSTEMS: Denies rash, fever, chills, sweating, dizziness, drowsiness, blurred vision, sore throat, or change in weight. No shortness of breath or chest pain. No nausea, vomiting, diarrhea, or blood in the stool. No dysuria. Objective Last 24 Hour Vital Signs Date Time Temp Pulse Resp B/P (MAP) Pulse Ox O2 Delivery O2 Flow Rate FiO2 03/09/20 11:39 97.8 80 18 100/68 (79) 98 03/09/20 09:00 Room Air 03/09/20 08:00 97.2 75 18 99/51 (67) 98 03/09/20 04:00 98.5 75 18 98/48 (65) 96 03/09/20 00:00 98.2 79 18 97/51 (66) 96 03/08/20 21:00 Room Air 03/08/20 20:00 97.9 74 18 98/53 (68) 96 03/08/20 16:00 98.2 69 18 113/58 (76) 95 03/08/20 15:59 97.3 03/08/20 12:00 97.3 76 18 97/59 (72) 97 Intake and Output 03/08/20 03/09/20 19:00 07:00 Intake Total 600 ml 240 ml Output Total 200 ml Balance 600 ml 40 ml Intake Oral 600 ml 240 ml Output Urine Total 200 ml # Voids 3 2 # Bowel Movements 1 Height (Feet): 5 Height (Inches): 6.00 Weight (Pounds): 170 Objective PHYSICAL EXAMINATION: GENERAL: Alert, awake, and oriented. LUNGS: Decreased breath sounds bilaterally. HEART: S1 and S2 regular. ABDOMEN: Soft and nontender. EXTREMITIES: Lower extremity range of motion is decreased due to the patient's condition. Left [id number] amputation noted. Right foot gangrene seen. Assessment/Plan Assessment/Plan: (1) Left above the knee amputation (2) Stump pain. (3) Right lower extremity pain (4) Dry gangrene with edema of right lower extremity (5) Covid 19+ Patient to be continued on [place] and Morphine D/w Dr. Lynn and he concurred. Homar Kumar Mar 09, 2020 11:55
--- NOTE | 2020-03-09 12:17 | General Progress Note ---
Subjective Allergies: Coded Allergies: PENICILLINS (Unverified Allergy, Unknown, 03/05/20) Uncoded Allergies: PENICILLIN (Allergy, Unknown, 08/19/19) Subjective doing ok poor complience c/o pain Objective Last 24 Hour Vital Signs Date Time Temp Pulse Resp B/P (MAP) Pulse Ox O2 Delivery O2 Flow Rate FiO2 03/09/20 11:39 97.8 80 18 100/68 (79) 98 03/09/20 09:00 Room Air 03/09/20 08:00 97.2 75 18 99/51 (67) 98 03/09/20 04:00 98.5 75 18 98/48 (65) 96 03/09/20 00:00 98.2 79 18 97/51 (66) 96 03/08/20 21:00 Room Air 03/08/20 20:00 97.9 74 18 98/53 (68) 96 03/08/20 16:00 98.2 69 18 113/58 (76) 95 03/08/20 15:59 97.3 Intake and Output 03/08/20 03/09/20 19:00 07:00 Intake Total 600 ml 240 ml Output Total 200 ml Balance 600 ml 40 ml Intake Oral 600 ml 240 ml Output Urine Total 200 ml # Voids 3 2 # Bowel Movements 1 Height (Feet): 5 Height (Inches): 6.00 Weight (Pounds): 170 General Appearance: alert EENT: PERRL/EOMI Neck: supple Cardiovascular: regular rhythm Respiratory/Chest: lungs clear Abdomen: non tender, soft Assessment/Plan Assessment/Plan: 1 cellulitis of lt foot 2 gangrene of lt foot 3 dm 4 chronic pain 5 htn 6 ppr compleience covid 19 cont iv abx pain meds id and surgery on the case dw Matthew Jean MD Mar 09, 2020 12:17
--- NOTE | 2020-03-09 14:06 | Surgery Progress Note ---
Surgery Progress Note Subjective Additional Comments no n/v/f/c comfortable dressing going well labs noted Objective Last 24 Hour Vital Signs Date Time Temp Pulse Resp B/P (MAP) Pulse Ox O2 Delivery O2 Flow Rate FiO2 03/09/20 12:30 97.8 03/09/20 11:39 97.8 80 18 100/68 (79) 98 03/09/20 09:00 Room Air 03/09/20 08:00 97.2 75 18 99/51 (67) 98 03/09/20 04:00 98.5 75 18 98/48 (65) 96 03/09/20 00:00 98.2 79 18 97/51 (66) 96 03/08/20 21:00 Room Air 03/08/20 20:00 97.9 74 18 98/53 (68) 96 03/08/20 16:00 98.2 69 18 113/58 (76) 95 03/08/20 15:59 97.3 I&O Intake and Output0 03/08/20 03/09/20 19:00 07:00 Intake Total 600 ml 240 ml Output Total 200 ml Balance 600 ml 40 ml Intake Oral 600 ml 240 ml Output Urine Total 200 ml # Voids 3 2 # Bowel Movements 1 Dressing: saturated Cardiovascular: RSR Respiratory: decreased breath sounds Abdomen: soft, non-tender, present bowel sounds Extremities: edema, no tenderness, no cyanosis Plan Problems: (1) Gangrene of right foot Assessment & Plan: 64-year-old male with history of left aka which is currently stable stable. On right lower extremity he has extensive tissue loss dry gangr rocco with edema of right foot, ankle, distal leg. cellulitis. chronic. Afebrile hemodynamic stable labs okay. Patient mainly complaining of pain and wants more pain medication. Unsure if directly related to the extremity or potential history of dependency. The extent of the leg tissue loss is significant and the likelihood of salvage is very poor. Will initiate local wound care in the meantime. Patient is Covid positive and will proceed with treatment of that prior to any consideration of amputation as this is longer chronic ongoing and amputation can be done at a later time as it has been deferred for some time now. Given the Covid status for patient safety operative team surgical and elective nature of the procedure can proceed with antibiotic local wound care and consideration of amputation future. If worsening or becomes an emergency will need emergent amputation and will be available. Thank you for letting participate patient's care wash lower extremity daily with NS, swab with betadine, apply xerofoam and abd, wrap, change daily appreciate podiatry input patient refusing care plan and non compliant d/c planning covid tx chronic wounds and ongoing problem for some time will need amputation right side at later time cont local wound care There is generalized osteopenia. No focal cortical lucency to suggest acute osteomyelitis. There is a deformity of the fifth metatarsal head, likely the result of prior trauma. Additionally there is an overhanging osseous edge along the lateral margin of the distal fifth metatarsal which raises the possibility of a inflammatory arthropathy such as gout of the fifth metatarsophalangeal joint. No acute fracture is seen. No dislocation. Small retrocalcaneal enthesophyte. Soft tissues: There is diffuse soft tissue swelling and edema with locules of air, consistent with history of soft tissue wound. No radiopaque foreign body. IMPRESSION: Diffuse soft tissue swelling, edema with locules of air is compatible with history of soft tissue wound. No radiographic evidence of underlying osteomyelitis. An MRI is a more sensitive examination and can be performed to exclude osteomyelitis if clinically indicated. (2) COVID-19 Assessment & Plan: ++ rx pulm ID Ryan Albright Mar 09, 2020 14:06
[2020-03-09 16:00] VITALS: BP 116/76
[2020-03-09 20:00] VITALS: BP 143/54
[2020-03-09] MEDS: Atorvastatin 20mg tab ORAL SCH (20:54)
[2020-03-10] VITALS: BP 117/62
[2020-03-10] MEDS: HYDROcodone/Acetamin 10/325 tab ORAL PRN ×4 (01:59→20:41)
[2020-03-10 04:00] VITALS: BP 120/69
[2020-03-10 08:00] VITALS: BP 107/65
[2020-03-10 08:51] LABS: BASOPHILS % (AUTO) 0.4 % (0.0-2.0); EOSINOPHILS % (AUTO) 0.2 % (0.0-3.0); HEMATOCRIT 26.7 % (42.0-52.0); HEMOGLOBIN 9.2 G/DL (14.2-18.0); LYMPHOCYTES % (AUTO) 10.5 % (20.0-45.0); MEAN CORPUSCULAR VOLUME 81 FL (80-99); MONOCYTES % (AUTO) 9.7 % (1.0-10.0); NEUTROPHILS % (AUTO) 79.2 % (45.0-75.0); PLATELET COUNT 267 K/UL (150-450); RED BLOOD COUNT 3.28 M/UL (4.70-6.10); RED CELL DISTRIBUTION WIDTH 15.7 % (11.6-14.8); WHITE BLOOD COUNT 6.8 K/UL (4.8-10.8)
[2020-03-10 08:59] LABS: ALANINE AMINOTRANSFERASE 53 U/L (12-78); ALBUMIN 2.3 G/DL (3.4-5.0); ALBUMIN/GLOBULIN RATIO 0.5 (1.0-2.7); ALKALINE PHOSPHATASE 120 U/L (46-116); ANION GAP 11 mmol/L (5-15); ASPARTATE AMINO TRANSFERASE 56 U/L (15-37); BILIRUBIN,TOTAL 0.5 MG/DL (0.2-1.0); BLOOD UREA NITROGEN 32 mg/dL (7-18); CALCIUM 8.4 MG/DL (8.5-10.1); CARBON DIOXIDE 22 MMOL/L (21-32); CHLORIDE 101 MMOL/L (98-107); CREATININE 1.1 MG/DL (0.55-1.30); POTASSIUM 4.6 MMOL/L (3.5-5.1); SODIUM 134 MMOL/L (136-145)
[2020-03-10] MEDS: Bisacodyl EC 5mg tab ORAL SCH ×2 (09:00→09:32)
[2020-03-10] MEDS: Aspirin Baby 81mg ORAL SCH ×2 (09:00→09:33)
[2020-03-10] MEDS: Docusate 100mg cap ORAL SCH ×2 (09:00→09:33)
[2020-03-10] MEDS: Lisinopril 20mg tab ORAL SCH ×2 (09:00→09:34)
[2020-03-10] MEDS: Ascorbic Acid 500mg tab ORAL SCH ×2 (09:31→17:22)
[2020-03-10] MEDS: Vancomycin 500mg/D5W 110ml IVPB SCH ×4 (10:18→20:41)
[2020-03-10 12:00] VITALS: BP 102/64
--- NOTE | 2020-03-10 13:27 | General Progress Note ---
Subjective Allergies: Coded Allergies: PENICILLINS (Unverified Allergy, Unknown, 03/05/20) Uncoded Allergies: PENICILLIN (Allergy, Unknown, 08/19/19) Subjective doing ok poor complience c/o pain Objective Last 24 Hour Vital Signs Date Time Temp Pulse Resp B/P (MAP) Pulse Ox O2 Delivery O2 Flow Rate FiO2 03/10/20 12:00 97.8 67 19 102/64 (77) 96 03/10/20 09:00 Room Air 03/10/20 08:00 97.8 85 19 107/65 (79) 97 03/10/20 04:00 96.2 83 19 120/69 (86) 99 03/10/20 03:16 97.5 03/10/20 00:00 97.5 89 19 117/62 (80) 98 03/09/20 21:37 97.8 03/09/20 21:36 Room Air 03/09/20 20:00 97.7 94 19 143/54 (83) 98 03/09/20 16:55 97.8 03/09/20 16:00 98.6 88 20 116/76 (89) 98 Intake and Output 03/09/20 03/10/20 19:00 07:00 Intake Total 360 ml Output Total 300 ml Balance 60 ml Intake Oral 360 ml Output Urine Total 300 ml Laboratory Tests 03/10/20 08:00: White Blood Count 6.8, Red Blood Count 3.28L, Hemoglobin 9.2L, Hematocrit 26.7L, Mean Corpuscular Volume 81, Mean Corpuscular Hemoglobin 28.0, Mean Corpuscular Hemoglobin Concent 34.4, Red Cell Distribution Width 15.7H, Platelet Count 267, Mean Platelet Volume 5.7L, Neutrophils (%) (Auto) 79.2H, Lymphocytes (%) (Auto) 10.5L, Monocytes (%) (Auto) 9.7, Eosinophils (%) (Auto) 0.2, Basophils (%) (Auto) 0.4, Sodium Level 134L, Potassium Level 4.6, Chloride Level 101, Carbon Dioxide Level 22, Anion Gap 11, Blood Urea Nitrogen 32H, Creatinine 1.1, Estimat Glomerular Filtration Rate > 60, Glucose Level 100, Calcium Level 8.4L, Total Bilirubin 0.5, Aspartate Amino Transf (AST/SGOT) 56H, Alanine Aminotransferase (ALT/SGPT) 53, Alkaline Phosphatase 120H, Total Protein 6.6, Albumin 2.3L, Globulin 4.3, Albumin/Globulin Ratio 0.5L, Vancomycin Level Trough 17.3H Height (Feet): 5 Height (Inches): 6.00 Weight (Pounds): 170 General Appearance: alert EENT: PERRL/EOMI Neck: supple Cardiovascular: regular rhythm Respiratory/Chest: normal breath sounds Abdomen: non tender, soft Assessment/Plan Assessment/Plan: 1 cellulitis of lt foot 2 gangrene of lt foot 3 dm 4 chronic pain 5 htn 6 ppr compleience covid 19 cont iv abx pain meds id and surgery on the case dw podietaty await for covid 19 test Matthew Vickers MD Mar 10, 2020 13:26
--- NOTE | 2020-03-10 14:47 | Surgery Progress Note ---
Surgery Progress Note Subjective Additional Comments no acute events Objective Last 24 Hour Vital Signs Date Time Temp Pulse Resp B/P (MAP) Pulse Ox O2 Delivery O2 Flow Rate FiO2 03/10/20 12:00 97.8 67 19 102/64 (77) 96 03/10/20 09:00 Room Air 03/10/20 08:00 97.8 85 19 107/65 (79) 97 03/10/20 04:00 96.2 83 19 120/69 (86) 99 03/10/20 03:16 97.5 03/10/20 00:00 97.5 89 19 117/62 (80) 98 03/09/20 21:37 97.8 03/09/20 21:36 Room Air 03/09/20 20:00 97.7 94 19 143/54 (83) 98 03/09/20 16:55 97.8 03/09/20 16:00 98.6 88 20 116/76 (89) 98 I&O Intake and Output 03/09/20 03/10/20 19:00 07:00 Intake Total 360 ml Output Total 300 ml Balance 60 ml Intake Oral 360 ml Output Urine Total 300 ml Dressing: dry Cardiovascular: RSR Respiratory: decreased breath sounds Abdomen: non-tender, present bowel sounds Extremities: other Laboratory Tests Test 03/10/20 08:00 White Blood Count 6.8 K/UL (4.8-10.8) Red Blood Count 3.28 M/UL (4.70-6.10) L Hemoglobin 9.2 G/DL (14.2-18.0) L Hematocrit 26.7 % (42.0-52.0) L Mean Corpuscular Volume 81 FL (80-99) Mean Corpuscular Hemoglobin 28.0 PG (27.0-31.0) Mean Corpuscular Hemoglobin Concent 34.4 G/DL (32.0-36.0) Red Cell Distribution Width 15.7 % (11.6-14.8) H Platelet Count 267 K/UL (150-450) Mean Platelet Volume 5.7 FL (6.5-10.1) L Neutrophils (%) (Auto) 79.2 % (45.0-75.0) H Lymphocytes (%) (Auto) 10.5 % (20.0-45.0) L Monocytes (%) (Auto) 9.7 % (1.0-10.0) Eosinophils (%) (Auto) 0.2 % (0.0-3.0) Basophils (%) (Auto) 0.4 % (0.0-2.0) Sodium Level 134 MMOL/L (136-145) L Potassium Level 4.6 MMOL/L (3.5-5.1) Chloride Level 101 MMOL/L (98-107) Carbon Dioxide Level 22 MMOL/L (21-32) Anion Gap 11 mmol/L (5-15) Blood Urea Nitrogen 32 mg/dL (7-18) H Creatinine 1.1 MG/DL (0.55-1.30) Estimat Glomerular Filtration Rate > 60 mL/min (>60) Glucose Level 100 MG/DL (74-106) Calcium Level 8.4 MG/DL (8.5-10.1) L Total Bilirubin 0.5 MG/DL (0.2-1.0) Aspartate Amino Transf (AST/SGOT) 56 U/L (15-37) H Alanine Aminotransferase (ALT/SGPT) 53 U/L (12-78) Alkaline Phosphatase 120 U/L (46-116) H Total Protein 6.6 G/DL (6.4-8.2) Albumin 2.3 G/DL (3.4-5.0) L Globulin 4.3 g/dL Albumin/Globulin Ratio 0.5 (1.0-2.7) L Vancomycin Level Trough 17.3 ug/mL (5.0-12.0) H Plan Problems: (1) Gangrene of right foot Assessment & Plan: 64-year-old male with history of left aka which is currently stable stable. On right lower extremity he has extensive tissue loss dry gangrene with edema of right foot, ankle, distal leg. cellulitis. chronic. Afebrile hemodynamic stable labs okay. Patient mainly complaining of pain and wants more pain medication. Unsure if directly related to the extremity or potential history of dependency. The extent of the leg tissue loss is significant and the likelihood of salvage is very poor. Will initiate local wound care in the meantime. Patient is Covid positive and will proceed with treatment of that prior to any consideration of amputation as this is longer chronic ongoing and amputation can be done at a later time as it has been deferred for some time now. Given the Covid status for patient safety operative team surgical and elective nature of the procedure can proceed with antibiotic local wound care and consideration of amputation future. If worsening or becomes an emergency will need emergent amputation and will be available. Thank you for letting participate patient's care wash lower extremity daily with NS, swab with betadine, apply xerofoam and abd, wrap, change daily appreciate podiatry input patient refusing care plan and non compliant d/c planning covid tx chronic wounds and ongoing problem for some time will need amputation right side at later time cont local wound care There is generalized osteopenia. No focal cortical lucency to suggest acute osteomyelitis. There is a deformity of the fifth metatarsal head, likely the result of prior trauma. Additionally there is an overhanging osseous edge along the lateral margin of the distal fifth metatarsal which raises the possibility of a inflammatory arthropathy such as gout of the fifth metatarsophalangeal joint. No acute fracture is seen. No dislocation. Small retrocalcaneal enthesophyte. Soft tissues: There is diffuse soft tissue swelling and edema with locules of air, consistent with history of soft tissue wound. No radiopaque foreign body. IMPRESSION: Diffuse soft tissue swelling, edema with locules of air is compatible with history of soft tissue wound. No radiographic evidence of underlying osteomyelitis. An MRI is a more sensitive examination and can be performed to exclude osteomyelitis if clinically indicated. (2) COVID-19 Assessment & Plan: ++ rx pulm ID Ryan Albright Mar 10, 2020 14:47
[2020-03-10 16:00] VITALS: BP 122/63
[2020-03-10 20:00] VITALS: BP 95/61
[2020-03-10] MEDS: Atorvastatin 20mg tab ORAL SCH (20:41)
[2020-03-11] VITALS (9 sets, daily range): BP systolic 75–116; BP diastolic 52–61
[2020-03-11] MEDS: HYDROcodone/Acetamin 10/325 tab ORAL PRN (06:19)
[2020-03-11] MEDS: Lisinopril 20mg tab ORAL SCH (08:45)
[2020-03-11] MEDS: Aspirin Baby 81mg ORAL SCH (08:45)
[2020-03-11] MEDS: Ascorbic Acid 500mg tab ORAL SCH ×2 (08:45→17:42)
[2020-03-11] MEDS: Vancomycin 500mg/D5W 110ml IVPB SCH ×4 (08:45→22:32)
[2020-03-11] MEDS: Docusate 100mg cap ORAL SCH (08:45)
[2020-03-11] MEDS: Bisacodyl EC 5mg tab ORAL SCH (08:45)
--- NOTE | 2020-03-11 10:16 | General Progress Note ---
Subjective Constitutional: Denies: no symptoms, chills, diaphoresis, fever, malaise, weakness, other HEENT: Denies: no symptoms, eye pain, blurred vision, tearing, double vision, ear pain, ear discharge, nose pain, nose congestion, throat pain, throat swelling, mouth pain, mouth swelling, other Cardiovascular: Denies: no symptoms, chest pain, edema, irregular heart rate, lightheadedness, palpitations, syncope, other Gastrointestinal/Abdominal: Denies: no symptoms, abdomen distended, abdominal pain, black stools, tarry stools, blood in stool, constipated, diarrhea, difficulty swallowing, nausea, poor appetite, poor fluid intake, rectal bleeding, vomiting, other Genitourinary: Denies: no symptoms, burning, discharge, frequency, flank pain, hematuria, incontinence, pain, urgency, other Endocrine: Denies: no symptoms, excessive sweating, flushing, intolerance to cold, intolerance to heat, increased hunger, increased thirst, increased urine, unexplained weight gain, unexplained weight loss, other Hematologic/Lymphatic: Denies: no symptoms, anemia, easy bleeding, easy bruising, other Allergies: Coded Allergies: PENICILLINS (Unverified Allergy, Unknown, 03/05/20) Uncoded Allergies: PENICILLIN (Allergy, Unknown, 08/19/19) Subjective 03/11 doing better, seen by id and surg, on abx, noncompliant Objective Last 24 Hour Vital Signs Date Time Temp Pulse Resp B/P (MAP) Pulse Ox O2 Delivery O2 Flow Rate FiO2 03/11/20 08:45 104/52 03/11/20 08:00 97.1 80 18 104/52 (69) 96 03/11/20 06:00 116/61 (79) 03/11/20 04:00 96.8 81 18 90/55 (67) 96 03/11/20 00:00 97.0 72 20 90/56 (67) 97 03/10/20 21:00 Room Air 03/10/20 20:00 97.0 76 20 95/61 (72) 96 03/10/20 16:00 98.2 76 19 122/63 (82) 97 03/10/20 12:00 97.8 67 19 102/64 (77) 96 Intake and Output 03/10/20 03/11/20 19:00 07:00 Intake Total 360 ml 360 ml Output Total 600 ml Balance -240 ml 360 ml Intake Oral 360 ml Other 360 ml Output Urine Total 600 ml # Voids 2 Height (Feet): 5 Height (Inches): 6.00 Weight (Pounds): 170 Objective General Appearance: alert EENT: PERRL/EOMI Neck: supple Cardiovascular: regular rhythm Respiratory/Chest: normal breath sounds Abdomen: non tender, soft Assessment/Plan Assessment/Plan: Assessment/Plan: 1 cellulitis of lt foot 2 gangrene of lt foot 3 dm 4 chronic pain 5 htn 6 ppr compleience 7. COVID19+ covid 19 cont iv abx VANC pain meds id and surgery on the case dw Ankush Hernandez MD Mar 11, 2020 10:16
--- NOTE | 2020-03-11 11:45 | General Progress Note ---
Subjective Date patient seen: Mar 11, 2020 Time patient seen: 11:00 - am Allergies: Coded Allergies: PENICILLINS (Unverified Allergy, Unknown, 03/05/20) Uncoded Allergies: PENICILLIN (Allergy, Unknown, 08/19/19) Subjective HISTORY OF PRESENT ILLNESS: This is a 64-year-old male who is being seen on the Med\Surg floor of [facility]. Patient continues to c/o pain which has been tolerated on the [place] and Morphine as needed. No new complaints at this time. REVIEW OF SYSTEMS: Denies rash, fever, chills, sweating, dizziness, drowsiness, blurred vision, sore throat, or change in weight. No shortness of breath or chest pain. No nausea, vomiting, diarrhea, or blood in the stool. No dysuria. Objective Last 24 Hour Vital Signs Date Time Temp Pulse Resp B/P (MAP) Pulse Ox O2 Delivery O2 Flow Rate FiO2 03/11/20 09:00 Room Air 03/11/20 08:45 104/52 03/11/20 08:00 97.1 80 18 104/52 (69) 96 03/11/20 06:00 116/61 (79) 03/11/20 04:00 96.8 81 18 90/55 (67) 96 03/11/20 00:00 97.0 72 20 90/56 (67) 97 03/10/20 21:00 Room Air 03/10/20 20:00 97.0 76 20 95/61 (72) 96 03/10/20 16:00 98.2 76 19 122/63 (82) 97 03/10/20 12:00 97.8 67 19 102/64 (77) 96 Intake and Output 03/10/20 03/11/20 19:00 07:00 Intake Total 360 ml 360 ml Output Total 600 ml Balance -240 ml 360 ml Intake Oral 360 ml Other 360 ml Output Urine Total 600 ml # Voids 2 Height (Feet): 5 Height (Inches): 6.00 Weight (Pounds): 170 Objective PHYSICAL EXAMINATION: GENERAL: Alert, awake, and oriented. LUNGS: Decreased breath sounds bilaterally. HEART: S1 and S2 regular. ABDOMEN: Soft and nontender. EXTREMITIES: Lower extremity range of motion is decreased due to the patient's condition. Left [id number] amputation noted. Right foot gangrene seen. Assessment/Plan Assessment/Plan: (1) Left above the knee amputation (2) Stump pain. (3) Right lower extremity pain (4) Dry gangrene with edema of right lower extremity (5) Covid 19+ Patient to be continued on [place] and Morphine D/w Dr. Lynn and he concurred. Homar Kumar Mar 11, 2020 11:45
--- NOTE | 2020-03-11 14:54 | Surgery Progress Note ---
Surgery Progress Note Subjective Additional Comments No acute events Objective Last 24 Hour Vital Signs Date Time Temp Pulse Resp B/P (MAP) Pulse Ox O2 Delivery O2 Flow Rate FiO2 03/11/20 12:00 97.1 67 18 113/56 (75) 96 03/11/20 09:00 Room Air 03/11/20 08:45 104/52 03/11/20 08:00 97.1 80 18 104/52 (69) 96 03/11/20 06:00 116/61 (79) 03/11/20 04:00 96.8 81 18 90/55 (67) 96 03/11/20 00:00 97.0 72 20 90/56 (67) 97 03/10/20 21:00 Room Air 03/10/20 20:00 97.0 76 20 95/61 (72) 96 03/10/20 16:00 98.2 76 19 122/63 (82) 97 I&O Intake and Output 03/10/20 03/11/20 19:00 07:00 Intake Total 360 ml 360 ml Output Total 600 ml Balance -240 ml 360 ml Intake Oral 360 ml Other 360 ml Output Urine Total 600 ml # Voids 2 Dressing: saturated Cardiovascular: RSR Respiratory: decreased breath sounds Abdomen: non-tender, present bowel sounds Extremities: edema, no tenderness, other Plan Problems: (1) Gangrene of right foot Assessment & Plan: 64-year-old male with history of left aka which is currently stable stable. On right lower extremity he has extensive tissue loss dry gangrene with edema of right foot, ankle, distal leg. cellulitis. chronic. Afebrile hemodynamic stable labs okay. Patient mainly complaining of pain and wants more pain medication. Unsure if directly related to the extremity or potential history of dependency. The extent of the leg tissue loss is significant and the likelihood of salvage is very poor. Will initiate local wound care in the meantime. Patient is Covid positive and will proceed with treatment of that prior to any consideration of amputation as this is longer chronic ongoing and amputation can be done at a later time as it has been deferred for some time now. Given the Covid status for patient safety operative team surgical and elective nature of the procedure can proceed with antibiotic local wound care and consideration of amputation future. If worsening or becomes an emergency will need emergent amputation and will be available. Thank you for letting participate patient's care wash lower extremity daily with NS, swab with betadine, apply xerofoam and abd, wrap, change daily appreciate podiatry input patient refusing care plan and non compliant d/c planning covid tx chronic wounds and ongoing problem for some time will need amputation right side at later time cont local wound care There is generalized osteopenia. No focal cortical lucency to suggest acute osteomyelitis. There is a deformity of the fifth metatarsal head, likely the result of prior trauma. Additionally there is an overhanging osseous edge along the lateral margin of the distal fifth metatarsal which raises the possibility of a inflammatory arthropathy such as gout of the fifth metatarsophalangeal joint. No acute fracture is seen. No dislocation. Small retrocalcaneal enthesophyte. Soft tissues: There is diffuse soft tissue swelling and edema with locules of air, consistent with history of soft tissue wound. No radiopaque foreign body. IMPRESSION: Diffuse soft tissue swelling, edema with locules of air is compatible with history of soft tissue wound. No radiographic evidence of underlying osteomyelitis. An MRI is a more sensitive examination and can be performed to exclude osteomyelitis if clinically indicated. (2) COVID-19 Assessment & Plan: ++ rx pulm ID Ryan Albright Mar 11, 2020 14:54
[2020-03-11] MEDS: Atorvastatin 20mg tab ORAL SCH (22:31)
[2020-03-12] VITALS: BP 120/65
[2020-03-12] MEDS: HYDROcodone/Acetamin 10/325 tab ORAL PRN (00:17)
[2020-03-12 04:30] VITALS: BP 98/52
[2020-03-12 08:00] VITALS: BP 103/57
--- NOTE | 2020-03-12 08:39 | General Progress Note ---
Subjective Date patient seen: Mar 12, 2020 Time patient seen: 07:00 - am Allergies: Coded Allergies: PENICILLINS (Unverified Allergy, Unknown, 03/05/20) Uncoded Allergies: PENICILLIN (Allergy, Unknown, 08/19/19) Subjective HISTORY OF PRESENT ILLNESS: This is a 64-year-old male who is being seen on the Med\Surg floor of [facility]. Patient showing no signs of pain or distress. Pain has been stable and tolerated on the [place] and Morphine. No new complaints at this time. REVIEW OF SYSTEMS: Denies rash, fever, chills, sweating, dizziness, drowsiness, blurred vision, sore throat, or change in weight. No shortness of breath or chest pain. No nausea, vomiting, diarrhea, or blood in the stool. No dysuria. Objective Last 24 Hour Vital Signs Date Time Temp Pulse Resp B/P (MAP) Pulse Ox O2 Delivery O2 Flow Rate FiO2 03/12/20 04:30 97.6 69 18 98/52 (67) 96 03/12/20 00:00 97.6 76 18 120/65 (83) 97 03/11/20 23:15 115/55 (75) 03/11/20 23:00 76 19 82/52 (62) 99 03/11/20 21:00 Room Air 03/11/20 20:00 97.7 67 18 75/52 (60) 96 03/11/20 16:00 97.7 67 18 105/58 (74) 96 03/11/20 12:00 97.1 67 18 113/56 (75) 96 03/11/20 09:00 Room Air 03/11/20 08:45 104/52 Intake and Output 03/11/20 03/12/20 19:00 07:00 Intake Total 690 ml 360 ml Balance 690 ml 360 ml Intake Oral 480 ml IV Total 210 ml Other 360 ml # Voids 2 # Bowel Movements 1 Height (Feet): 5 Height (Inches): 6.00 Weight (Pounds): 170 Objective PHYSICAL EXAMINATION: GENERAL: Alert, awake, and oriented. LUNGS: Decreased breath sounds bilaterally. HEART: S1 and S2 regular. ABDOMEN: Soft and nontender. EXTREMITIES: Lower extremity range of motion is decreased due to the patient's condition. Left [id number] amputation noted. Right foot gangrene seen. Assessment/Plan Assessment/Plan: (1) Left above the knee amputation (2) Stump pain. (3) Right lower extremity pain (4) Dry gangrene with edema of right lower extremity (5) Covid 19+ Patient to be continued on [place] and Morphine D/w Dr. Lynn and he concurred. Homar Kumar Mar 12, 2020 08:39
[2020-03-12] MEDS: Lisinopril 20mg tab ORAL SCH (09:00)
[2020-03-12] MEDS: Aspirin Baby 81mg ORAL SCH (09:29)
[2020-03-12] MEDS: Ascorbic Acid 500mg tab ORAL SCH ×2 (09:29→17:46)
[2020-03-12] MEDS: Docusate 100mg cap ORAL SCH (09:29)
[2020-03-12] MEDS: Bisacodyl EC 5mg tab ORAL SCH (09:29)
--- NOTE | 2020-03-12 09:40 | General Progress Note ---
Subjective Allergies: Coded Allergies: PENICILLINS (Unverified Allergy, Unknown, 03/05/20) Uncoded Allergies: PENICILLIN (Allergy, Unknown, 08/19/19) Subjective doing ok poor complience c/o pain Objective Last 24 Hour Vital Signs Date Time Temp Pulse Resp B/P (MAP) Pulse Ox O2 Delivery O2 Flow Rate FiO2 03/12/20 08:00 96.8 68 18 103/57 (72) 98 03/12/20 04:30 97.6 69 18 98/52 (67) 96 03/12/20 00:00 97.6 76 18 120/65 (83) 97 03/11/20 23:15 115/55 (75) 03/11/20 23:00 76 19 82/52 (62) 99 03/11/20 21:00 Room Air 03/11/20 20:00 97.7 67 18 75/52 (60) 96 03/11/20 16:00 97.7 67 18 105/58 (74) 96 03/11/20 12:00 97.1 67 18 113/56 (75) 96 Intake and Output 03/11/20 03/12/20 19:00 07:00 Intake Total 690 ml 360 ml Balance 690 ml 360 ml Intake Oral 480 ml IV Total 210 ml Other 360 ml # Voids 2 # Bowel Movements 1 Height (Feet): 5 Height (Inches): 6.00 Weight (Pounds): 170 General Appearance: alert EENT: normal ENT inspection Neck: supple Cardiovascular: regular rhythm Respiratory/Chest: lungs clear Abdomen: non tender, soft Extremities: other - foot ulcer Assessment/Plan Assessment/Plan: 1 cellulitis of lt foot 2 gangrene of lt foot 3 dm 4 chronic pain 5 htn 6 ppr compleience covid 19 cont iv abx pain meds id and surgery on the case dw podietaty await for covid 19 test Matthew Vickers MD Mar 12, 2020 09:40
--- NOTE | 2020-03-12 11:48 | Infectious Diseases Prog Note ---
Assessment/Plan Assessment/Plan antibiotics : vancomycin iv A 1. Right foot cellulitis and gangrene, would be concerned regarding osteomyelitis. 2. He was tested COVID-19 positive on room air. 3. Hypertension. P 1. Continue IV vancomycin 1 more day 2. will follow up cultures 3. Continue isolation. Subjective Constitutional: Denies: fever, chills Respiratory: Denies: shortness of breath, dry cough Gastrointestinal/Abdominal: Reports: diarrhea; Denies: nausea, vomiting Musculoskeletal: Reports: pain Allergies: Coded Allergies: PENICILLINS (Unverified Allergy, Unknown, 03/05/20) Uncoded Allergies: PENICILLIN (Allergy, Unknown, 08/19/19) Objective Last 24 Hour Vital Signs Date Time Temp Pulse Resp B/P (MAP) Pulse Ox O2 Delivery O2 Flow Rate FiO2 03/12/20 09:00 Room Air 03/12/20 08:00 96.8 68 18 103/57 (72) 98 03/12/20 04:30 97.6 69 18 98/52 (67) 96 03/12/20 00:00 97.6 76 18 120/65 (83) 97 03/11/20 23:15 115/55 (75) 03/11/20 23:00 76 19 82/52 (62) 99 03/11/20 21:00 Room Air 03/11/20 20:00 97.7 67 18 75/52 (60) 96 03/11/20 16:00 97.7 67 18 105/58 (74) 96 03/11/20 12:00 97.1 67 18 113/56 (75) 96 Height (Feet): 5 Height (Inches): 6.00 Weight (Pounds): 170 Respiratory/Chest: lungs clear Cardiovascular: normal rate, regular rhythm, no gallop/murmur Abdomen: soft, non tender Extremities: no edema, other - right foot in dressings Microbiology Date/Time Source Procedure Growth Status 03/09/20 14:30 Nasopharynx Coronavirus COVID-19 PCR ([facility]) - Final Complete Current Medications Medications (Trade) Dose Ordered Sig/[place] Route PRN Reason Start Time Stop Time Status Last Admin Dose Admin Acetaminophen (Tylenol) 325 mg Q4H PRN ORAL pain 1-3 03/05/20 16:00 04/04/20 15:59 03/11/20 10:55 Acetaminophen/ Hydrocodone Bitart ([place] 10/325) 1 tab Q4H PRN ORAL Moderate Pain (Pain Scale 4-6) 03/12/20 09:00 03/19/20 08:59 Ascorbic Acid (Vitamin C) 500 mg TWICE A DAY ORAL 03/05/20 18:00 04/04/20 17:59 03/12/20 09:29 Aspirin (ASA) 81 mg DAILY ORAL 03/06/20 09:00 04/20/20 08:59 03/12/20 09:29 Atorvastatin Calcium (Lipitor) 40 mg BEDTIME ORAL 03/05/20 21:00 06/03/20 20:59 03/11/20 22:31 Bisacodyl (Dulcolax) 10 mg DAILY ORAL 03/06/20 09:00 06/04/20 08:59 03/12/20 09:29 Bisoprolol Fumarate (Zebeta) 5 mg DAILY ORAL 03/06/20 09:00 04/05/20 08:59 03/11/20 08:45 Docusate Sodium (Colace) 100 mg DAILY ORAL 03/06/20 09:00 04/05/20 08:59 03/12/20 09:29 Ferrous Sulfate (Feosol) 325 mg DAILY ORAL 03/06/20 09:00 06/04/20 08:59 03/12/20 09:29 Ibuprofen (Motrin) 800 mg Q6H PRN ORAL PAIN 4-6 03/05/20 16:00 04/04/20 15:59 03/12/20 04:37 Lisinopril (PriniviL) 20 mg DAILY ORAL 03/06/20 09:00 04/05/20 08:59 03/06/20 08:49 Morphine Sulfate (Morphine Sulfate) 1 mg Q6H PRN IVP Severe Pain (Pain Scale 7-10) 03/12/20 09:00 03/19/20 08:59 Vancomycin HCl (Vanco pharmacy to dose) 1 ea DAILY PRN MISC Per rx protocol 03/05/20 06:45 04/04/20 06:44 Ana Masters MD Mar 12, 2020 11:48
[2020-03-12 12:00] VITALS: BP 89/60
--- NOTE | 2020-03-12 13:27 | Surgery Progress Note ---
Surgery Progress Note Subjective Additional Comments no acute events comfortable no n/v Objective Last 24 Hour Vital Signs Date Time Temp Pulse Resp B/P (MAP) Pulse Ox O2 Delivery O2 Flow Rate FiO2 03/12/20 09:00 Room Air 03/12/20 08:00 96.8 68 18 103/57 (72) 98 03/12/20 04:30 97.6 69 18 98/52 (67) 96 03/12/20 00:00 97.6 76 18 120/65 (83) 97 03/11/20 23:15 115/55 (75) 03/11/20 23:00 76 19 82/52 (62) 99 03/11/20 21:00 Room Air 03/11/20 20:00 97.7 67 18 75/52 (60) 96 03/11/20 16:00 97.7 67 18 105/58 (74) 96 I&O Intake and Output 03/11/20 03/12/20 19:00 07:00 Intake Total 690 ml 360 ml Balance 690 ml 360 ml Intake Oral 480 ml IV Total 210 ml Other 360 ml # Voids 2 # Bowel Movements 1 Dressing: saturated Cardiovascular: RSR Respiratory: decreased breath sounds Abdomen: non-tender, present bowel sounds Extremities: edema, no tenderness, no cyanosis Plan Problems: (1) Gangrene of right foot Assessment & Plan: 64-year-old male with history of left aka which is currently stable stable. On right lower extremity he has extensive tissue loss dry gangrene with edema of right foot, ankle, distal leg. cellulitis. chronic. A febrile hemodynamic stable labs okay. Patient mainly complaining of pain and wants more pain medication. Unsure if directly related to the extremity or potential history of dependency. The extent of the leg tissue loss is significant and the likelihood of salvage is very poor. Will initiate local wound care in the meantime. Patient is Covid positive and will proceed with treatment of that prior to any consideration of amputation as this is longer chronic ongoing and amputation can be done at a later time as it has been deferred for some time now. Given the Covid status for patient safety operative team surgical and elective nature of the procedure can proceed with antibiotic local wound care and consideration of amputation future. If worsening or beco mes an emergency will need emergent amputation and will be available. Thank you for letting participate patient's care wash lower extremity daily with NS, swab with betadine, apply xerofoam and abd, wrap, change daily appreciate podiatry input patient refusing care plan and non compliant d/c planning covid tx chronic wounds and ongoing problem for some time will need amputation right side at later time cont local wound care There is generalized osteopenia. No focal cortical lucency to suggest acute osteomyelitis. There is a deformity of the fifth metatarsal head, likely the result of prior trauma. Additionally there is an overhanging osseous edge along the lateral margin of the distal fifth metatarsal which raises the possibility of a inflammatory arthropathy such as gout of the fifth metatarsophalangeal joint. No acute fracture is seen. No dislocation. Small retrocalcaneal enthesophyte. Soft tissues: There is diffuse soft tissue swelling and edema with locules of air, consistent with history of soft tissue wound. No radiopaque foreign body. IMPRESSION: Diffuse soft tissue swelling, edema with locules of air is compatible with history of soft tissue wound. No radiographic evidence of underlying osteomyelitis. An MRI is a more sensitive examination and can be performed to exclude osteomyelitis if clinically indicated. (2) COVID-19 Assessment & Plan: ++ rx pulm ID Ryan Albright Mar 12, 2020 13:27
[2020-03-12] MEDS: Vancomycin 500mg/D5W 110ml IVPB SCH ×2 (14:11)
[2020-03-12 16:00] VITALS: BP 99/61
[2020-03-12] MEDS: Morphine Sulfate 2mg/ml Inj(IV/IM USE ONLY) IVP PRN ×2 (16:37→22:57)
[2020-03-12 20:00] VITALS: BP 96/61
[2020-03-12] MEDS: Atorvastatin 20mg tab ORAL SCH (20:41)
[2020-03-13] VITALS: BP 90/57
[2020-03-13] MEDS: Vancomycin 500mg/D5W 110ml IVPB SCH ×2 (02:40)
[2020-03-13 02:48] VITALS: BP 107/69
[2020-03-13] MEDS: HYDROcodone/Acetamin 10/325 tab ORAL PRN ×4 (02:48→17:26)
[2020-03-13 04:00] VITALS: BP 120/51
[2020-03-13 08:00] VITALS: BP 114/52
[2020-03-13] MEDS: Aspirin Baby 81mg ORAL SCH (08:15)
[2020-03-13] MEDS: Ascorbic Acid 500mg tab ORAL SCH ×2 (08:15→17:26)
[2020-03-13] MEDS: Bisacodyl EC 5mg tab ORAL SCH (08:15)
[2020-03-13] MEDS: Docusate 100mg cap ORAL SCH (08:15)
--- NOTE | 2020-03-13 08:51 | General Progress Note ---
Subjective Date patient seen: Mar 13, 2020 Time patient seen: 07:00 - am Allergies: Coded Allergies: PENICILLINS (Unverified Allergy, Unknown, 03/05/20) Uncoded Allergies: PENICILLIN (Allergy, Unknown, 08/19/19) Subjective HISTORY OF PRESENT ILLNESS: This is a 64-year-old male who is being seen on the Med[facility]Surg floor of [facility]. Patient in bed continues to c/o pain which has been tolerated at a moderate level on the [place] and Morphine. No new complaints at this time. REVIEW OF SYSTEMS: Denies rash, fever, chills, sweating, dizziness, drowsiness, blurred vision, sore throat, or change in weight. No shortness of breath or chest pain. No nausea, vomiting, diarrhea, or blood in the stool. No dysuria. Objective Last 24 Hour Vital Signs Date Time Temp Pulse Resp B/P (MAP) Pulse Ox O2 Delivery O2 Flow Rate FiO2 03/13/20 04:00 96.1 69 18 120/51 (74) 99 03/13/20 03:18 96.6 03/13/20 02:48 97.6 76 20 107/69 (82) 99 03/13/20 00:59 96.6 03/13/20 00:00 97.9 74 18 90/57 (68) 99 03/12/20 23:27 96.6 03/12/20 21:11 96.6 03/12/20 21:00 Room Air 03/12/20 20:00 97.7 76 19 96/61 (73) 98 03/12/20 16:00 96.6 80 18 99/61 (74) 96 03/12/20 12:00 97.0 69 18 89/60 (70) 96 03/12/20 09:00 Room Air Intake and Output 03/12/20 03/13/20 19:00 07:00 Output Total 250 ml Balance -250 ml Output Urine Total 250 ml # Voids 2 2 # Bowel Movements 1 Height (Feet): 5 Height (Inches): 6.00 Weight (Pounds): 170 Objective PHYSICAL EXAMINATION: GENERAL: Alert, awake, and oriented. LUNGS: Decreased breath sounds bilaterally. HEART: S1 and S2 regular. ABDOMEN: Soft and nontender. EXTREMITIES: Lower extremity range of motion is decreased due to the patient's condition. Left [id number] amputation noted. Right foot gangrene seen. Assessment/Plan Assessment/Plan: (1) Left above the knee amputation (2) Stump pain. (3) Right lower extremity pain (4) Dry gangrene with edema of right lower extremity (5) Covid 19+ Patient to be continued on [place] and Morphine D/w Dr. Lynn and he concurred. Homar Kumar Mar 13, 2020 08:51
[2020-03-13] MEDS: Lisinopril 20mg tab ORAL SCH (09:00)
[2020-03-13 09:02] LABS: BASOPHILS % (AUTO) 0.1 % (0.0-2.0); EOSINOPHILS % (AUTO) 0.2 % (0.0-3.0); HEMATOCRIT 26.7 % (42.0-52.0); LYMPHOCYTES % (AUTO) 8.9 % (20.0-45.0); MEAN CORPUSCULAR VOLUME 82 FL (80-99); MONOCYTES % (AUTO) 8.8 % (1.0-10.0); NEUTROPHILS % (AUTO) 81.9 % (45.0-75.0); PLATELET COUNT 276 K/UL (150-450); RED BLOOD COUNT 3.25 M/UL (4.70-6.10); RED CELL DISTRIBUTION WIDTH 15.1 % (11.6-14.8); WHITE BLOOD COUNT 10.7 K/UL (4.8-10.8)
[2020-03-13 09:28] LABS: CALCIUM 8.4 MG/DL (8.5-10.1); POTASSIUM 4.3 MMOL/L (3.5-5.1)
--- NOTE | 2020-03-13 10:52 | General Progress Note ---
Subjective Allergies: Coded Allergies: PENICILLINS (Unverified Allergy, Unknown, 03/05/20) Uncoded Allergies: PENICILLIN (Allergy, Unknown, 08/19/19) Subjective doing ok poor complience c/o pain Objective Last 24 Hour Vital Signs Date Time Temp Pulse Resp B/P (MAP) Pulse Ox O2 Delivery O2 Flow Rate FiO2 03/13/20 09:00 114/52 03/13/20 09:00 Room Air 03/13/20 08:00 97.0 71 18 114/52 (72) 95 03/13/20 04:00 96.1 69 18 120/51 (74) 99 03/13/20 03:18 96.6 03/13/20 02:48 97.6 76 20 107/69 (82) 99 03/13/20 00:59 96.6 03/13/20 00:00 97.9 74 18 90/57 (68) 99 03/12/20 23:27 96.6 03/12/20 21:11 96.6 03/12/20 21:00 Room Air 03/12/20 20:00 97.7 76 19 96/61 (73) 98 03/12/20 16:00 96.6 80 18 99/61 (74) 96 03/12/20 12:00 97.0 69 18 89/60 (70) 96 Intake and Output 03/12/20 03/13/20 19:00 07:00 Output Total 250 ml Balance -250 ml Output Urine Total 250 ml # Voids 2 2 # Bowel Movements 1 Laboratory Tests 03/13/20 08:00: White Blood Count 10.7, Red Blood Count 3.25L, Hemoglobin 9.0L, Hematocrit 26.7L , Mean Corpuscular Volume 82, Mean Corpuscular Hemoglobin 27.6, Mean Corpuscular Hemoglobin Concent 33.6, Red Cell Distribution Width 15.1H, Platelet Count 276, Mean Platelet Volume 4.8L, Neutrophils (%) (Auto) 81.9H, Lymphocytes (%) (Auto) 8.9L, Monocytes (%) (Auto) 8.8, Eosinophils (%) (Auto) 0.2, Basophils (%) (Auto) 0.1, Sodium Level 132L, Potassium Level 4.3, Chloride Level 99, Carbon Dioxide Level 19L, Anion Gap 15, Blood Urea Nitrogen 56H, Creatinine 2.0H, Estimat Glomerular Filtration Rate 33.8, Glucose Level 80, Calcium Level 8.4L Height (Feet): 5 Height (Inches): 6.00 Weight (Pounds): 170 EENT: PERRL/EOMI Neck: supple Cardiovascular: regular rhythm Respiratory/Chest: lungs clear Abdomen: non tender, soft Extremities: non-tender Assessment/Plan Assessment/Plan: 1 cellulitis of lt foot 2 gangrene of lt foot 3 dm 4 chronic pain 5 htn 6 ppr compleience 7 arf ivf,rpt labs, nephro consult covid 19 cont iv abx pain meds id and surgery on the case dw podietaty await for covid 19 test Matthew Vickers MD Mar 13, 2020 10:52
--- NOTE | 2020-03-13 11:57 | Infectious Diseases Prog Note ---
Assessment/Plan Assessment/Plan antibiotics : vancomycin iv A 1. Right foot cellulitis and gangrene, would be concerned regarding osteomyelitis. 2. He was tested COVID-19 positive on room air. 3. Hypertension 4. renal failure P 1. d/c IV vancomycin 2. will follow up cultures 3. Continue isolation. Subjective Constitutional: Denies: fever, chills Respiratory: Denies: shortness of breath, dry cough Gastrointestinal/Abdominal: Denies: nausea, vomiting, diarrhea Musculoskeletal: Reports: pain Allergies: Coded Allergies: PENICILLINS (Unverified Allergy, Unknown, 03/05/20) Uncoded Allergies: PENICILLIN (Allergy, Unknown, 08/19/19) Objective Last 24 Hour Vital Signs Date Time Temp Pulse Resp B/P (MAP) Pulse Ox O2 Delivery O2 Flow Rate FiO2 03/13/20 09:00 114/52 03/13/20 09:00 Room Air 03/13/20 08:00 97.0 71 18 114/52 (72) 95 03/13/20 04:00 96.1 69 18 120/51 (74) 99 03/13/20 03:18 96.6 03/13/20 02:48 97.6 76 20 107/69 (82) 99 03/13/20 00:59 96.6 03/13/20 00:00 97.9 74 18 90/57 (68) 99 03/12/20 23:27 96.6 03/12/20 21:11 96.6 03/12/20 21:00 Room Air 03/12/20 20:00 97.7 76 19 96/61 (73) 98 03/12/20 16:00 96.6 80 18 99/61 (74) 96 03/12/20 12:00 97.0 69 18 89/60 (70) 96 Height (Feet): 5 Height (Inches): 6.00 Weight (Pounds): 170 Respiratory/Chest: lungs clear Cardiovascular: normal rate, regular rhythm, no gallop/murmur Abdomen: soft, non tender Extremities: no edema, other - right foot necrotic Laboratory Tests Test 03/13/20 08:00 White Blood Count 10.7 K/UL (4.8-10.8) Red Blood Count 3.25 M/UL (4.70-6.10) L Hemoglobin 9.0 G/DL (14.2-18.0) L Hematocrit 26.7 % (42.0-52.0) L Mean Corpuscular Volume 82 FL (80-99) Mean Corpuscular Hemoglobin 27.6 PG (27.0-31.0) Mean Corpuscular Hemoglobin Concent 33.6 G/DL (32.0-36.0) Red Cell Distribution Width 15.1 % (11.6-14.8) H Platelet Count 276 K/UL (150-450) Mean Platelet Volume 4.8 FL (6.5-10.1) L Neutrophils (%) (Auto) 81.9 % (45.0-75.0) H Lymphocytes (%) (Auto) 8.9 % (20.0-45.0) L Monocytes (%) (Auto) 8.8 % (1.0-10.0) Eosinophils (%) (Auto) 0.2 % (0.0-3.0) Basophils (%) (Auto) 0.1 % (0.0-2.0) Sodium Level 132 MMOL/L (136-145) L Potassium Level 4.3 MMOL/L (3.5-5.1) Chloride Level 99 MMOL/L (98-107) Carbon Dioxide Level 19 MMOL/L (21-32) L Anion Gap 15 mmol/L (5-15) Blood Urea Nitrogen 56 mg/dL (7-18) H Creatinine 2.0 MG/DL (0.55-1.30) H Estimat Glomerular Filtration Rate 33.8 mL/min (>60) Glucose Level 80 MG/DL (74-106) Calcium Level 8.4 MG/DL (8.5-10.1) L Current Medications Medications (Trade) Dose Ordered Sig/[place] Route PRN Reason Start Time Stop Time Status Last Admin Dose Admin Acetaminophen (Tylenol) 325 mg Q4H PRN ORAL pain 1-3 03/05/20 16:00 04/04/20 15:59 03/13/20 00:29 Acetaminophen/ Hydrocodone Bitart ([place] 10/325) 1 tab Q4H PRN ORAL Moderate Pain (Pain Scale 4-6) 03/12/20 09:00 03/19/20 08:59 03/13/20 08:15 Ascorbic Acid (Vitamin C) 500 mg TWICE A DAY ORAL 03/05/20 18:00 04/04/20 17:59 03/13/20 08:15 Aspirin (ASA) 81 mg DAILY ORAL 03/06/20 09:00 04/20/20 08:59 03/13/20 08:15 Atorvastatin Calcium (Lipitor) 40 mg BEDTIME ORAL 03/05/20 21:00 06/03/20 20:59 03/12/20 20:41 Bisacodyl (Dulcolax) 10 mg DAILY ORAL 03/06/20 09:00 06/04/20 08:59 03/13/20 08:15 Bisoprolol Fumarate (Zebeta) 5 mg DAILY ORAL 03/06/20 09:00 04/05/20 08:59 03/11/20 08:45 Docusate Sodium (Colace) 100 mg DAILY ORAL 03/06/20 09:00 04/05/20 08:59 03/13/20 08:15 Ferrous Sulfate (Feosol) 325 mg DAILY ORAL 03/06/20 09:00 06/04/20 08:59 03/13/20 08:15 Morphine Sulfate (Morphine Sulfate) 1 mg Q6H PRN IVP Severe Pain (Pain Scale 7-10) 03/12/20 09:00 03/19/20 08:59 03/12/20 22:57 Sodium Chloride 1,000 ml @ 75 mls/hr [id number] IV 03/13/20 11:00 04/12/20 10:59 03/13/20 11:00 Vancomycin HCl (Vanco pharmacy to dose) 1 ea DAILY PRN MISC Per rx protocol 03/05/20 06:45 04/04/20 06:44 Ana Masters MD Mar 13, 2020 11:57
[2020-03-13 12:00] VITALS: BP 96/54
[2020-03-13 16:00] VITALS: BP 101/64
--- NOTE | 2020-03-13 16:22 | Surgery Progress Note ---
Surgery Progress Note Subjective Additional Comments no acute events poor compliance Objective Last 24 Hour Vital Signs Date Time Temp Pulse Resp B/P (MAP) Pulse Ox O2 Delivery O2 Flow Rate FiO2 03/13/20 16:00 97.5 76 18 101/64 (76) 94 03/13/20 12:00 96.8 70 18 96/54 (68) 98 03/13/20 09:00 114/52 03/13/20 09:00 Room Air 03/13/20 08:00 97.0 71 18 114/52 (72) 95 03/13/20 04:00 96.1 69 18 120/51 (74) 99 03/13/20 03:18 96.6 03/13/20 02:48 97.6 76 20 107/69 (82) 99 03/13/20 00:59 96.6 03/13/20 00:00 97.9 74 18 90/57 (68) 99 03/12/20 23:27 96.6 03/12/20 21:11 96.6 03/12/20 21:00 Room Air 03/12/20 20:00 97.7 76 19 96/61 (73) 98 I&O Intake and Output 03/12/20 03/13/20 19:00 07:00 Output Total 250 ml Balance -250 ml Output Urine Total 250 ml # Voids 2 2 # Bowel Movements 1 Dressing: saturated Cardiovascular: RSR Respiratory: decreased breath sounds Abdomen: non-tender, present bowel sounds Extremities: edema, no cyanosis, pulses, other Laboratory Tests Test 03/13/20 08:00 White Blood Count 10.7 K/UL (4.8-10.8) Red Blood Count 3.25 M/UL (4.70-6.10) L Hemoglobin 9.0 G/DL (14.2-18.0) L Hematocrit 26.7 % (42.0-52.0) L Mean Corpuscular Volume 82 FL (80-99) Mean Corpuscular Hemoglobin 27.6 PG (27.0-31.0) Mean Corpuscular Hemoglobin Concent 33.6 G/DL (32.0-36.0) Red Cell Distribution Width 15.1 % (11.6-14.8) H Platelet Count 276 K/UL (150-450) Mean Platelet Volume 4.8 FL (6.5-10.1) L Neutrophils (%) (Auto) 81.9 % (45.0-75.0) H Lymphocytes (%) (Auto) 8.9 % (20.0-45.0) L Monocytes (%) (Auto) 8.8 % (1.0-10.0) Eosinophils (%) (Auto) 0.2 % (0.0-3.0) Basophils (%) (Auto) 0.1 % (0.0-2.0) Sodium Level 132 MMOL/L (136-145) L Potassium Level 4.3 MMOL/L (3.5-5.1) Chloride Level 99 MMOL/L (98-107) Carbon Dioxide Level 19 MMOL/L (21-32) L Anion Gap 15 mmol/L (5-15) Blood Urea Nitrogen 56 mg/dL (7-18) H Creatinine 2.0 MG/DL (0.55-1.30) H Estimat Glomerular Filtration Rate 33.8 mL/min (>60) Glucose Level 80 MG/DL (74-106) Calcium Level 8.4 MG/DL (8.5-10.1) L Plan Problems: (1) Gangrene of right foot Assessment & Plan: 64-year-old male with history of left aka which is currently stable stable. On right lower extremity he has extensive tissue loss dry gangrene with edema of right foot, ankle, distal leg. cellulitis. chronic. Afebrile hemodynamic stable labs okay. Patient mainly complaining of pain and wants more pain medication. Unsure if directly related to the extremity or potential history of dependency. The extent of the leg tissue loss is significant and the likelihood of salvage is very poor. Will initiate local wound care in the meantime. Patient is Covid positive and will proceed with treatment of that prior to any consideration of amputation as this is longer chronic ongoing and amputation can be done at a later time as it has been deferred for some time now. Given the Covid status for patient safety operative team surgical and elective nature of the procedure can proceed with antibiotic local wound care and consideration of amputation future. If worsening or becomes an emergency will need emergent amputation and will be available. Thank you for letting participate patient's care wash lower extremity daily with NS, swab with betadine, apply xerofoam and abd, wrap, change daily appreciate podiatry input patient refusing care plan and non compliant d/c planning covid tx chronic wounds and ongoing problem for some time will need amputation right side at later time cont local wound care There is generalized osteopenia. No focal cortical lucency to suggest acute osteomyelitis. There is a deformity of the fifth metatarsal head, likely the result of prior trauma. Additionally there is an overhanging osseous edge along the lateral margin of the distal fifth metatarsal which raises the possibility of a inflammatory arthropathy such as gout of the fifth metatarsophalangeal joint. No acute fracture is seen. No dislocation. Small retrocalcaneal enthesophyte. Soft tissues: There is diffuse soft tissue swelling and edema with locules of air, consistent with history of soft tissue wound. No radiopaque foreign body. IMPRESSION: Diffuse soft tissue swelling, edema with locules of air is compatible with history of soft tissue wound. No radiographic evidence of underlying osteomyelitis. An MRI is a more sensitive examination and can be performed to exclude osteomyelitis if clinically indicated. (2) COVID-19 Assessment & Plan: ++ rx pulm ID Ryan Albright Mar 13, 2020 16:22
[2020-03-13] MEDS: Atorvastatin 20mg tab ORAL SCH (21:00)
--- NOTE | 2020-03-14 11:32 | Discharge Summary ---
Discharge Summary Discharge Summary _ DATE OF ADMISSION: 03/04/2020 DATE OF DISCHARGE: 03/13/2020 DISCHARGED BY: Dr. Vickers REASON FOR ADMISSION: 64 years old male, resident of shelter facility, with past medical history of hypertension, PVD, hyperlipidemia, left above-knee amputation, presented for evaluation due to right foot non healing wound for months . Patient reported throbbing , nonradiating pain , 10 out of 10. No fevers or chills. Patient recently was tested positive for Covid. Patient denied cough . No chest pain or shortness of breath. Upon evaluation vital signs were stable Rapid COVID-19 was positive. Chest x-ray revealed no acute cardiopulmonary pathology. X-ray of the right foot revealed diffuse soft tissue swelling, edema with locules of air , compatible with history of soft tissue wound. No radiographic evidence of underlying osteomyelitis. Physical exam showed gangrene of the right foot and ankle. Patient started on broad-spectrum antibiotic , received dexamethasone and Lovenox, and admitted to isolation room for further management. CONSULTANTS: ID specialist Dr. Masters surgery Dr. Albright egg trayer Dr. Pichardo pain specialist Dr. Kelsey [facility]SE: Patient admitted to isolation room. Chest x-ray was stable. Pulse oximetry remained stable on room air. No need for steroids . CXR with no evidence of pneumonia. Blood culture came back negative. Patient was treated with broad-spectrum antibiotic for right foot cellulitis and gangrene . Pain management was provided as per pain specialist. Wound care provided as per surgeon recommendation . Surgeon stated that patient will need amputation on the right foot when cleared from COVID. At this time local wound care continued as per surgeon recommendations. Maintenance Mechanic Helper seen and evaluated patient. No acute surgical intervention required by podiatry. Maintenance Mechanic Helper also recommended amputation of right lower extremity when Covid status resolves. Hemoglobin and hematocrit were closely monitored with goal to keep hemoglobin above 7 ; prior to discharge hemoglobin 9 ,hematocrit 26.7. Stool for occult blood was positive. Patient was on vancomycin , dosed by pharmacy. Patient developed acute renal failure with creatinine 2.0 . Vancomycin was discontinued. SNF medication continued , including antihypertensive regimen , antiplatelet and statin. Bowel regimen instituted. DVT and GI prophylaxis provided. Covid by PCR was positive Patient was transferred back to shelter facility : encourage hydration , monitor renal parameters and consider surgical intervention when COVID-19 clears. FINAL DIAGNOSES: Right foot cellulitis Right foot gangrene Left above-knee amputation Left stump pain Right foot pain COVID-19 positive Hypertension Chronic pain Acute renal failure DISCHARGE MEDICATIONS: See Medication Reconciliation list. DISCHARGE INSTRUCTIONS: Patient was discharged to the shelter facility. Follow up with medical doctor at the facility. I have been assigned to dictate discharge summary for this account. I was not involved in the patient's management. Barbi Sutton NP Mar 14, 2020 11:32
== END 2020-03-13 20:20 | DRG 197 ==
LOC: EDBD 19:34 → EMR 20:14 → UNDOADMIN 20:46 → 4E 20:46 → EDBEDREQ 21:06 → UNDODISIN 03-05 14:45
DX: I73.9 Peripheral vascular disease, unspecified (principal); S91.301A Unspecified open wound, right foot, initial encounter; U07.1 COVID-19; L03.115 Cellulitis of right lower limb; I10 Essential (primary) hypertension; X58.XXXA Exposure to other specified factors, initial encounter; Z88.0 Allergy status to penicillin; Z79.82 Long term (current) use of aspirin; Z89.612 Acquired absence of left leg above knee; E78.5 Hyperlipidemia, unspecified; G54.6 Phantom limb syndrome with pain; N17.9 Acute kidney failure, unspecified; M85.861 Other specified disorders of bone density and structure, right lower leg
CPT/HCPCS: 36415; 71045; 80048; 80053; 80202; 82043; 82044; 82270; 82570; 82728; 83605; 83615; 83880; 84300; 85007; 85025; 85379; 85610; 85730; 86140; 86850; 86900; 86901; 87040; 89050; 96365; 96366; 96368; 96372; 96375; 99291; J7030; S0077; U0002